=== PATIENT | female | born 1945 | race Caucasian/White ===

== ENCOUNTER 2018-01-06 10:01 | Emergency (ER) | payer OTHER, SELFPAY ==
[~2018-01-06] VITALS: Ht 165.1 cm; Wt 108.0 kg
[~2018-01-06 10:01] MED LIST: ACET325 PO; ASPI325 PO; ASPI81CH PO; ASPI81EC PO; ATEN25 PO; ATEN50; ATEN50 PO; ATOR80 PO; BENZ100A PO; BUME2 PO; CALCAVITD PO; CEPH500 PO; CHOL10002 PO; CIPR250 PO; CIPR500 PO; CLIN150 PO; CLOP75 PO; COENZYME Q10100 MG PO; CYAN100 PO; CYAN1000I IM; Calcium 600 W/1 EAC1 PO; DIPATR PO; DOCSEN PO; DOXY100 PO; ENAL20 PO; FISH1000 PO; FLUT.05NI; GLIP5 PO; GLYMET5; GLYMET5 PO; Humalog100 UNIT/1; INSDET100 SC; INSLI100I SC; INSULANPEN SC; LEVFLO500 PO; LIDO5TP TOP; LISI5 PO; LORA.5 PO; LOVA20 PO; LOVA40; LOVA40 PO; MECL25 PO; METF500 PO; METO10 PO; MOM PO; MULVITA PO; MULVITMIND PO; MULVITMINE PO; Nitrostat0.4 MG SL; OMEP20ER PO; ONDA4ODT MM; ONDA8 PO; OXYACE5T PO; OXYC5 PO; PIOG15 PO; POLY17UD PO; POTCHL10ER PO; PROC5 PO; PROM25 PO; Zofran Odt4 MG PO; Zofran4 MG PO; Zofran8 MG PO
[2018-01-06 10:50] LABS: BASOPHILS ABSOLUTE AUTO 0.03 K/mm3 (0.00-0.23); BASOPHILS PERCENT AUTO 0 % (0-2); EOSINOPHILS ABSOLUTE AUTO 0.03 K/mm3 (0.00-0.68); EOSINOPHILS PERCENT AUTO 0 % (0-6); Hematocrit 44.5 % (33.0-51.0); Hemoglobin 14.5 g/dL (11.5-16.0); IMMATURE GRAN ABSOLUTE AUTO 0.02 K/mm3 (0.00-0.10); IMMATURE GRAN PERCENT AUTO 0 % (0-1); LYMPHOCYTES ABSOLUTE AUTO 0.24 K/mm3 (0.84-5.20); LYMPHOCYTES PERCENT AUTO 4 % (21-46); MONOCYTES ABSOLUTE AUTO 0.34 K/mm3 (0.16-1.47); MONOCYTES PERCENT AUTO 5 % (4-13); Mean Corpuscular HGB 31.9 pg (26.0-34.0); Mean Corpuscular HGB Conc 32.6 g/dL (31.5-36.5); Mean Corpuscular Volume 98 fL (80-100); Mean Platelet Volume 11.6 fL (9.1-12.4); NEUTROPHILS ABSOLUTE AUTO 6.27 K/mm3 (1.96-9.15); NEUTROPHILS PERCENT AUTO 91 % (41-73); Platelet Count 148 K/mm3 (150-400); RDW Coefficient Variation 12.5 % (11.7-14.2); Red Blood Cell Count 4.55 M/mm3 (3.80-5.20); White Blood Cell Count 6.93 K/mm3 (4.00-11.30)
[2018-01-06 11:12] LABS: Alanine Aminotransfer (ALT/SGP 299 U/L (12-78); Albumin, Blood 3.1 g/dL (3.4-5.0); Albumin/Globulin Ratio 0.8 (0.8-1.8); Alk Phos 316 U/L (50-136); Anion Gap 9 mmol/L (6-16); Aspartate Aminotrans (AST/SGOT 503 U/L (12-37); Bilirubin, Total 1.1 mg/dL (0.1-1.0); Blood Urea Nitrogen 15 mg/dL (8-24); Bun/Creatinine Ratio 21.7 (12.0-20.0); CO2, Blood 24 mmol/L (21-32); Calcium, Blood 8.6 mg/dL (8.5-10.1); Chloride, Blood 108 mmol/L (98-108); Creatinine, Blood 0.69 mg/dL (0.40-1.00); Glomerular Filtration Rate >60 (60-); Glucose, Blood 211 mg/dL (70-99); Potassium, Blood 3.8 mmol/L (3.5-5.5); Sodium, Blood 141 mmol/L (136-145); Total Protein, Blood 7.1 g/dL (6.4-8.2)
[2018-01-06] MEDS ORDERED: Zofran Odt8 MG SL (12:25)
[2018-01-06] MEDS ORDERED: Ultram50 MG PO (12:25)
== END 2018-01-06 13:05 | disposition home or self-care (01) ==
LOC: ER 10:01
PROVIDERS: Emergency Medicine
DX: K52.9 Noninfective gastroenteritis and colitis, unspecified (principal); I48.91 Unspecified atrial fibrillation; I10 Essential (primary) hypertension; E78.00 Pure hypercholesterolemia, unspecified; E11.9 Type 2 diabetes mellitus without complications; I25.2 Old myocardial infarction; Z95.5 Presence of coronary angioplasty implant and graft; Z79.82 Long term (current) use of aspirin; Z79.4 Long term (current) use of insulin; Z79.899 Other long term (current) drug therapy
CPT/HCPCS: 36415; 80053; 83690; 85025; 93005; 93010; 96361; 96374; 96375; 99283; J0780; J2405; J3010; J7030

== ENCOUNTER 2018-05-24 16:18 | Emergency (ER) | payer OTHER ==
[~2018-05-24] VITALS: Ht 165.1 cm; Wt 98.9 kg
[~2018-05-24 16:18] MED LIST changes: +Ultram50 MG PO; +Zofran Odt8 MG SL
[2018-05-24 16:56] LABS: BASOPHILS ABSOLUTE AUTO 0.06 K/mm3 (0.00-0.23); BASOPHILS PERCENT AUTO 1 % (0-2); EOSINOPHILS ABSOLUTE AUTO 0.17 K/mm3 (0.00-0.68); EOSINOPHILS PERCENT AUTO 3 % (0-6); Hematocrit 41.6 % (33.0-51.0); Hemoglobin 13.8 g/dL (11.5-16.0); IMMATURE GRAN ABSOLUTE AUTO 0.01 K/mm3 (0.00-0.10); IMMATURE GRAN PERCENT AUTO 0 % (0-1); LYMPHOCYTES ABSOLUTE AUTO 1.37 K/mm3 (0.84-5.20); LYMPHOCYTES PERCENT AUTO 24 % (21-46); MONOCYTES ABSOLUTE AUTO 0.47 K/mm3 (0.16-1.47); MONOCYTES PERCENT AUTO 8 % (4-13); Mean Corpuscular HGB 32.4 pg (26.0-34.0); Mean Corpuscular HGB Conc 33.2 g/dL (31.5-36.5); Mean Corpuscular Volume 98 fL (80-100); Mean Platelet Volume 11.7 fL (9.1-12.4); NEUTROPHILS ABSOLUTE AUTO 3.74 K/mm3 (1.96-9.15); NEUTROPHILS PERCENT AUTO 64 % (41-73); Platelet Count 201 K/mm3 (150-400); RDW Coefficient Variation 12.4 % (11.7-14.2); RDW Standard Deviation 44.4 fL (35.1-46.3); Red Blood Cell Count 4.26 M/mm3 (3.80-5.20); White Blood Cell Count 5.82 K/mm3 (4.00-11.30)
[2018-05-24 17:05] LABS: Alanine Aminotransfer (ALT/SGP 50 U/L (12-78); Albumin/Globulin Ratio 0.7 (0.8-1.8); Alk Phos 324 U/L (50-136); Anion Gap 6 mmol/L (6-16); Aspartate Aminotrans (AST/SGOT 48 U/L (12-37); Bilirubin, Total 0.5 mg/dL (0.1-1.0); Blood Urea Nitrogen 20 mg/dL (8-24); Bun/Creatinine Ratio 25.5 (12.0-20.0); CO2, Blood 28 mmol/L (21-32); Calcium, Blood 8.9 mg/dL (8.5-10.1); Chloride, Blood 107 mmol/L (98-108); Creatinine, Blood 0.79 mg/dL (0.40-1.00); Globulin, Blood 4.2 g/dL (2.2-4.0); Glomerular Filtration Rate >60 (60-); Glucose, Blood 229 mg/dL (70-99); Potassium, Blood 4.2 mmol/L (3.5-5.5); Sodium, Blood 141 mmol/L (136-145); Total Protein, Blood 7.2 g/dL (6.4-8.2)
== END 2018-05-24 21:08 | disposition home or self-care (01) ==
LOC: ER 16:18
PROVIDERS: Emergency Medicine
DX: R07.89 Other chest pain (principal); I48.91 Unspecified atrial fibrillation; I10 Essential (primary) hypertension; E11.9 Type 2 diabetes mellitus without complications; E78.00 Pure hypercholesterolemia, unspecified; Z88.5 Allergy status to narcotic agent; Z88.0 Allergy status to penicillin; Z88.2 Allergy status to sulfonamides; Z88.1 Allergy status to other antibiotic agents; Z79.4 Long term (current) use of insulin; Z79.899 Other long term (current) drug therapy; Z79.82 Long term (current) use of aspirin
CPT/HCPCS: 36415; 71046; 80053; 83880; 84484; 85025; 93005; 93010; 99285-25

== ENCOUNTER 2018-11-26 09:12 | Day surgery (SDC) | payer OTHER, SELFPAY ==
--- NOTE | 2018-11-26 12:22 | NUR ---
Discharge instructions reviewed with patient. Patient verbalizes understanding. Copy given to patient to take home. Discharged via wheelchair to private car for ride home. BANDAIDE C/D/I
== END 2018-11-26 12:20 | disposition home or self-care (01) ==
LOC: US 09:12 → ORD 09:12
DX: R94.5 Abnormal results of liver function studies (principal)
CPT/HCPCS: 47000; 76942; 88307; 88313

== ENCOUNTER 2019-03-15 15:41 | Inpatient (IN) | payer OTHER ==
[~2019-03-15] VITALS: Ht 165.1 cm; Wt 103.4 kg
[2019-03-15 16:08] LABS: BASOPHILS ABSOLUTE AUTO 0.07 K/mm3 (0.00-0.23); BASOPHILS PERCENT AUTO 1 % (0-2); EOSINOPHILS ABSOLUTE AUTO 0.15 K/mm3 (0.00-0.68); EOSINOPHILS PERCENT AUTO 2 % (0-6); Hematocrit 43.8 % (33.0-51.0); Hemoglobin 14.2 g/dL (11.5-16.0); IMMATURE GRAN ABSOLUTE AUTO 0.03 K/mm3 (0.00-0.10); IMMATURE GRAN PERCENT AUTO 0 % (0-1); LYMPHOCYTES ABSOLUTE AUTO 1.42 K/mm3 (0.84-5.20); LYMPHOCYTES PERCENT AUTO 17 % (21-46); MONOCYTES PERCENT AUTO 10 % (4-13); Mean Corpuscular HGB 32.4 pg (26.0-34.0); Mean Corpuscular HGB Conc 32.4 g/dL (31.5-36.5); Mean Corpuscular Volume 100 fL (80-100); Mean Platelet Volume 12.4 fL (9.1-12.4); NEUTROPHILS ABSOLUTE AUTO 5.89 K/mm3 (1.96-9.15); NEUTROPHILS PERCENT AUTO 70 % (41-73); Platelet Count 204 K/mm3 (150-400); RDW Coefficient Variation 13.2 % (11.7-14.2); RDW Standard Deviation 49.4 fL (35.1-46.3); Red Blood Cell Count 4.38 M/mm3 (3.80-5.20); White Blood Cell Count 8.36 K/mm3 (4.00-11.30)
[2019-03-15 16:34] LABS: Alanine Aminotransfer (ALT/SGP 46 U/L (12-78); Albumin, Blood 2.8 g/dL (3.4-5.0); Albumin/Globulin Ratio 0.6 (0.8-1.8); Alk Phos 292 U/L (50-136); Anion Gap 7 mmol/L (6-16); Aspartate Aminotrans (AST/SGOT 133 U/L (12-37); Bilirubin, Total 0.8 mg/dL (0.1-1.0); Blood Urea Nitrogen 20 mg/dL (8-24); Bun/Creatinine Ratio 27.2 (12.0-20.0); CO2, Blood 26 mmol/L (21-32); Calcium, Blood 8.6 mg/dL (8.5-10.1); Chloride, Blood 108 mmol/L (98-108); Creatinine, Blood 0.74 mg/dL (0.40-1.00); Globulin, Blood 4.4 g/dL (2.2-4.0); Glomerular Filtration Rate >60 (60-); Glucose, Blood 226 mg/dL (70-99); Potassium, Blood 4.2 mmol/L (3.5-5.5); Sodium, Blood 141 mmol/L (136-145); Total Protein, Blood 7.2 g/dL (6.4-8.2)
[2019-03-15] MEDS ORDERED: ALBU90OI61 INH (16:39)
--- NOTE | 2019-03-15 19:05 | NUR ---
ASSUMED CARE: PT ARIVED TO ICU 15 AT 1820, C/O NAUSEA AND VOMITING UPON ENTERING THE UNIT. GAVE ONE TIME DOSE OF ZOFRAN 4MG. APPEARS TO HAVE HELPED, PT DENIES NAUSEA AT THIS TIME. HR IS NOTED TO BE IN THE 50'S UPON ARIVAL. BP WAS 109/54 UPON ARIVAL AND BEGAN DECREASING. TALKED TO DR CHECO GEORGE ABOUT DECREASING BP AND VERBAL RECEIVED ORDERS. TR BAND IN PLACE WITH NO S/S OF BLEEDING NOTED, NO TENDERNESS, SWELLING, REDNESS OR BLEEDING. NO ACUTE DISTRESS NOTED AT THIS TIME. REPORT GIVEN TO LYNDA VERDUZCO.
--- NOTE | 2019-03-15 19:43 | NUR ---
PATIENT TRANSFER TO [facility] VIA REACH REPORT CALLED TO ALICIA VERDUZCO AT [facility] 12K PATIENT PLAN TO GO TO ROOM 18. PATIENT A&O X3 PATIENT FAMILY AWARE OF ROOM SHE IS GOING TO AND HAS LEFT TO MEET HER UP IN [place]. PATIENT WAS HYPOTENSIVE WITH SBP 80'S RESPONDING WELL TO NS BOLUS WITH FINAL BP 113/66. PATIENT MEDICATED WITH ZOFRAN BY DAY SHIFT FOR NAUSEA NO FARTHER NAUSEA AT THIS TIME. PATIENT HAS NO C/O PAIN OR NAUSEA WHEN LEAVING. TR BAND IN PLACE RIGHT WRIST, LEAVING WITH TR BAND INFLATED TO 10 CC OF AIR AND ARM BOARD IN PLACE. RIGHT WRIST SITE NO OOZING, SWELLING, OR BRUISING SEEN. TR BAND SYRINGE SENT WITH TRANSPORT.
== END 2019-03-15 19:45 | disposition short-term general hospital (02) | DRG 282 ==
LOC: ER 15:41 → ICUW 17:30
PROVIDERS: Physician Assistant; ADMIT Internal Medicine Interventional Cardiology
PROC: 4A023N7 Measurement of Cardiac Sampling and Pressure, Left Heart, Percutaneous Approach (ICD-10-PCS; principal; 2019-03-15)
PROC: B2111ZZ Fluoroscopy of Multiple Coronary Arteries using Low Osmolar Contrast (ICD-10-PCS; 2019-03-15)
DX: I21.4 Non-ST elevation (NSTEMI) myocardial infarction (principal); I25.10 Atherosclerotic heart disease of native coronary artery without angina pectoris; I10 Essential (primary) hypertension; E11.9 Type 2 diabetes mellitus without complications; K21.9 Gastro-esophageal reflux disease without esophagitis; Z95.5 Presence of coronary angioplasty implant and graft
CPT/HCPCS: 36415; 71046; 80053; 84484; 85025; 93005; 93010; 93458; 96374; 99152; 99153; 99285-25; C1769; C1887; C1894; J1644; J2250; J2405; J3010; J7030; Q9967

== ENCOUNTER 2019-04-17 00:22 | Inpatient (IN) | payer OTHER ==
[~2019-04-17] VITALS: Ht 165.1 cm; Wt 112.8 kg
[~2019-04-17 00:22] MED LIST changes: +ALBU90OI61 INH
[2019-04-17 01:18] LABS: BASOPHILS ABSOLUTE AUTO 0.03 K/mm3 (0.00-0.23); BASOPHILS PERCENT AUTO 1 % (0-2); EOSINOPHILS ABSOLUTE AUTO 0.44 K/mm3 (0.00-0.68); EOSINOPHILS PERCENT AUTO 8 % (0-6); Hematocrit 33.5 % (33.0-51.0); Hemoglobin 10.2 g/dL (11.5-16.0); IMMATURE GRAN ABSOLUTE AUTO 0.01 K/mm3 (0.00-0.10); IMMATURE GRAN PERCENT AUTO 0 % (0-1); LYMPHOCYTES ABSOLUTE AUTO 0.88 K/mm3 (0.84-5.20); LYMPHOCYTES PERCENT AUTO 16 % (21-46); MONOCYTES ABSOLUTE AUTO 0.56 K/mm3 (0.16-1.47); MONOCYTES PERCENT AUTO 10 % (4-13); Mean Corpuscular HGB 30.3 pg (26.0-34.0); Mean Corpuscular HGB Conc 30.4 g/dL (31.5-36.5); Mean Corpuscular Volume 99 fL (80-100); Mean Platelet Volume 9.9 fL (9.1-12.4); NEUTROPHILS ABSOLUTE AUTO 3.63 K/mm3 (1.96-9.15); NEUTROPHILS PERCENT AUTO 65 % (41-73); Platelet Count 243 K/mm3 (150-400); RDW Standard Deviation 54.6 fL (35.1-46.3); Red Blood Cell Count 3.37 M/mm3 (3.80-5.20); White Blood Cell Count 5.55 K/mm3 (4.00-11.30)
[2019-04-17 01:38] LABS: International Normalized Ratio 1.06; Prothrombin Time Results 11.2 Sec (9.7-11.5)
[2019-04-17 01:40] LABS: Alanine Aminotransfer (ALT/SGP 28 U/L (12-78); Albumin, Blood 2.2 g/dL (3.4-5.0); Albumin/Globulin Ratio 0.5 (0.8-1.8); Alk Phos 301 U/L (50-136); Anion Gap 6 mmol/L (6-16); Aspartate Aminotrans (AST/SGOT 41 U/L (12-37); Bilirubin, Total 0.4 mg/dL (0.1-1.0); Blood Urea Nitrogen 28 mg/dL (8-24); Bun/Creatinine Ratio 32.7 (12.0-20.0); CO2, Blood 35 mmol/L (21-32); Chloride, Blood 99 mmol/L (98-108); Creatinine, Blood 0.86 mg/dL (0.40-1.00); Globulin, Blood 4.3 g/dL (2.2-4.0); Glomerular Filtration Rate >60 (60-); Glucose, Blood 150 mg/dL (70-99); Sodium, Blood 140 mmol/L (136-145); Total Protein, Blood 6.5 g/dL (6.4-8.2); Troponin I 0.019 ng/mL (0.000-0.040)
[2019-04-17] MEDS ORDERED: ASPI325 PO (01:40)
[2019-04-17] MEDS ORDERED: Pacerone100 MG PO (01:40)
[2019-04-17] MEDS ORDERED: CLOP75 PO (01:40)
[2019-04-17] MEDS ORDERED: CYAN500 PO (01:46)
[2019-04-17] MEDS ORDERED: PANT40 PO (01:47)
[2019-04-17] MEDS ORDERED: LIDO700A20 TOP (01:47)
[2019-04-17] MEDS ORDERED: SERT50 PO (01:48)
[2019-04-17] MEDS ORDERED: FURO80 PO (01:49)
[2019-04-17] MEDS ORDERED: Metformin HCl500 MG PO (01:50)
[2019-04-17] MEDS ORDERED: POTCHL20ER PO (02:31)
[2019-04-17] MEDS ORDERED: ACET325 PO (02:32)
[2019-04-17] MEDS ORDERED: SENN187 PO (02:33)
[2019-04-17] MEDS ORDERED: GAVILAX17 GM PO (02:33)
[2019-04-17] MEDS ORDERED: TRAM50 PO (02:39)
[2019-04-17] MEDS ORDERED: ONDA4 PO (02:43)
--- NOTE | 2019-04-17 06:22 | NUR ---
0550 73 Y/O FEMALE ADMITTED TO ROOM 312 PER STRETCHER FROM ER. PT SIGN CONSENTS TO PHOTO WOUNDS TO CHEST AND RIGHT ANTERIOR UPPER CALF WOUNDS. PT IS ALERT AND ORIENTED X3.
--- NOTE | 2019-04-17 07:34 | NUR ---
0610 PTS MID STERNAL INCISION MEASURES 19CM; DISTAL ASPECT STERNAL INCISION HAS OPEN WOUND THAT MEASURES 3.5 X 1.5 0.5 CM WITH GREEN/YELLOW WOUND BED NOTED. PTS RIGHT KNEE INCISION MEASURES 6 X 6 CM IN DIAMETER (REDDENED). PTS STERNAL WOUND HAS OLD DRESSING TO STERNAL WOUND.
--- NOTE | 2019-04-17 10:19 | NUR ---
Echocardiogram completed.
--- NOTE | 2019-04-17 19:36 | NUR ---
SHIFT SUMAMRY: NO ACUTE CHANGES TO REPORT THSI SHIFT. PT A&O; CALM AND COOPERATIVE WITH CARE. PT SLEEPING T/O SHIFT. MEDICATED FOR PAIN PER EMAR. TELE IN PLACE; A-FIB @ 118 PER ENGLISH PROFESSOR DURING MORNING ASSESSMENT. IV ABX CONTINUING. REPROT GIVEN TO ONCOMING RN.
--- NOTE | 2019-04-17 21:51 | NUR ---
THIS NURSE CONTACTED [facility] AND REQUESTED CURRENT MEDICATION LIST WITH FACILITY TO FAX COPY TONIGHT. THIS NURSE PROVIDED FAX TO HOSPITAL ([phone]).
--- NOTE | 2019-04-18 04:19 | NUR ---
SHIFT SUMMARY: 73 Y/O OBESE FEMALE RESTED COMFORTABLY ALL SHIFT WITH OCCASIONAL C/O INCISIONAL CHEST DISCOMFORT RATED 5/10 WITH TYLENOL 500MG X 2 GIVEN AND TRAMADOL 50MG PO GIVEN WITH FAIR RELIEF. PTS MID STERNAL CHEST STILL HAS SAME OLD DRESSING INTACT SINCE ADMISSION WITH NOTE LEFT FOR CHARGE NURSE AND MD TO ADDRESS. PT INCONTINENT URINE AND REQUIRED ASSISTANCE WITH ATTENDS DIAPERS VIA STAFF. PT DENIES NAUSEA. PTS BED ALARM APPLIED, BED LOW POSITION, CALL LIGHT AT SIDE.
[2019-04-18 05:38] LABS: BASOPHILS ABSOLUTE AUTO 0.07 K/mm3 (0.00-0.23); BASOPHILS PERCENT AUTO 2 % (0-2); EOSINOPHILS ABSOLUTE AUTO 0.46 K/mm3 (0.00-0.68); EOSINOPHILS PERCENT AUTO 10 % (0-6); Hematocrit 31.5 % (33.0-51.0); Hemoglobin 9.6 g/dL (11.5-16.0); IMMATURE GRAN ABSOLUTE AUTO 0.01 K/mm3 (0.00-0.10); IMMATURE GRAN PERCENT AUTO 0 % (0-1); LYMPHOCYTES ABSOLUTE AUTO 0.98 K/mm3 (0.84-5.20); LYMPHOCYTES PERCENT AUTO 21 % (21-46); MONOCYTES ABSOLUTE AUTO 0.45 K/mm3 (0.16-1.47); MONOCYTES PERCENT AUTO 10 % (4-13); Mean Corpuscular HGB 29.9 pg (26.0-34.0); Mean Corpuscular HGB Conc 30.5 g/dL (31.5-36.5); Mean Corpuscular Volume 98 fL (80-100); NEUTROPHILS ABSOLUTE AUTO 2.77 K/mm3 (1.96-9.15); NEUTROPHILS PERCENT AUTO 58 % (41-73); Platelet Count 243 K/mm3 (150-400); Red Blood Cell Count 3.21 M/mm3 (3.80-5.20); White Blood Cell Count 4.74 K/mm3 (4.00-11.30)
[2019-04-18 05:58] LABS: Anion Gap 4 mmol/L (6-16); Blood Urea Nitrogen 26 mg/dL (8-24); Bun/Creatinine Ratio 30.6 (12.0-20.0); CO2, Blood 34 mmol/L (21-32); Chloride, Blood 98 mmol/L (98-108); Creatinine, Blood 0.85 mg/dL (0.40-1.00); Glomerular Filtration Rate >60 (60-); Glucose, Blood 147 mg/dL (70-99); Potassium, Blood 3.7 mmol/L (3.5-5.5); Sodium, Blood 136 mmol/L (136-145)
--- NOTE | 2019-04-18 13:23 | NUR ---
SHE HAS BEEN NAPPING AFTER LUNCH. SHE SAYS THAT'S WHAT SHE NEEDS.
--- NOTE | 2019-04-18 18:40 | NUR ---
BACK TO BED AFTER DINNER. SHE ENDED UP EATING WELL TODAY. SHE C/O STERNAL INCISION PAIN. TYLENOL JUST GIVEN. STERNAL INCISION UNCGHNGED. NO DRAINAGE. MD EVALUATED IT TODAY.
[2019-04-19 06:03] LABS: Vancomycin, Trough 13.1 ug/mL (5.0-10.0)
[2019-04-19 07:21] LABS: Calcium, Blood 8.2 mg/dL (8.5-10.1); Creatinine, Blood 1.04 mg/dL (0.40-1.00); Potassium, Blood 3.9 mmol/L (3.5-5.5)
--- NOTE | 2019-04-19 07:36 | NUR ---
SHIFT SUMMARY: 73 Y/O OBESE FEMALE RESTED COMFORTABLY ALL SHIFT. PT MEDICATED WITH TYLENOL 1000MG, PO TWICE WITH RELIEF FOR STERNAL DISCOMFORT. PTS ALERT AND ORIENTED, CHEERFUL AND COOPERATIVE WITH STAFF. PTS STERNAL WOUND DRESSING INTACT, BILATERAL LOWER LEG WOUNDS STILL SLIGHTLY REDDENED SURROUNDING INCISION. PT HAS BILATERAL LOWER EXTREMITY +3 PITTING EDEMA. PTS BED ALARM APPLIED FOR SAFETY, BED LOW POSITION, CALL LIGHT AT SIDE.
--- NOTE | 2019-04-19 17:12 | NUR ---
SHE HAS HAD A FAIR DAY. SHE C/O HAVING TO USE HER ARMS TOO MUCH TO GET TO A STANDING POSITION, MAKING HER CHEST HURT MORE. SHE ALSO HAD AN EMESIS THIS MORNING BETWEEN BREAKFAST AND LUNCH. ZOFRAN AND TYLENOL GIVEN WHEN ALLOWED AROUND 1 O'CLOCK. SHE HAS BEEN NAPPIN OR RESTING SINCE. WILL ENCOURAGE HER TO GET UP AGAIN FOR DINNER. LASIX LOWERED TODAY. LEGS LESS SWOLLEN THAN YESTERDAY. KNEE TEDS ON. CBG'S STABLE. MIDLINE INCISIONAL STERI STRIP STILL IN PLACE. NO DRAINAGE.
[2019-04-20 05:35] LABS: BASOPHILS ABSOLUTE AUTO 0.07 K/mm3 (0.00-0.23); BASOPHILS PERCENT AUTO 1 % (0-2); EOSINOPHILS ABSOLUTE AUTO 0.44 K/mm3 (0.00-0.68); EOSINOPHILS PERCENT AUTO 9 % (0-6); Hematocrit 32.2 % (33.0-51.0); Hemoglobin 9.9 g/dL (11.5-16.0); IMMATURE GRAN ABSOLUTE AUTO 0.02 K/mm3 (0.00-0.10); IMMATURE GRAN PERCENT AUTO 0 % (0-1); LYMPHOCYTES ABSOLUTE AUTO 1.13 K/mm3 (0.84-5.20); LYMPHOCYTES PERCENT AUTO 23 % (21-46); MONOCYTES ABSOLUTE AUTO 0.52 K/mm3 (0.16-1.47); MONOCYTES PERCENT AUTO 11 % (4-13); Mean Corpuscular HGB 29.9 pg (26.0-34.0); Mean Corpuscular HGB Conc 30.7 g/dL (31.5-36.5); Mean Corpuscular Volume 97 fL (80-100); NEUTROPHILS ABSOLUTE AUTO 2.69 K/mm3 (1.96-9.15); NEUTROPHILS PERCENT AUTO 55 % (41-73); Platelet Count 246 K/mm3 (150-400); RDW Coefficient Variation 14.8 % (11.7-14.2); RDW Standard Deviation 52.3 fL (35.1-46.3); Red Blood Cell Count 3.31 M/mm3 (3.80-5.20); White Blood Cell Count 4.87 K/mm3 (4.00-11.30)
--- NOTE | 2019-04-20 05:39 | NUR ---
SHIFT SUMMARY: 73 Y/O OBESE FEMALE RESTED COMFORTABLY IN BED. PT VOIDED URINE VIA BEDPAN ALL SHIFT (NO INCONTINENCE). PT C/O CHEST DISCOMFORT WITH TYLENOL 100MG GIVEN WTIH RELIEF FELT. PT DENIES NAUSEA. PTS CHEST WOUND STILL HAS OLD DRIED SUTURE TAPE IN PLACE WITH OPENING AT DISTAL ASPECT. PT TOLERATING ANTIBIOTICS ORDERED TO DATE. PT ALERT AND ORIENTED X 4, COOPERATIVE WITH STAFF. PTS BED ALARM APPLIED, BED LOW POSITION, CALL LIGHT AT SIDE.
[2019-04-20 05:56] LABS: Bun/Creatinine Ratio 24.8 (12.0-20.0); Calcium, Blood 8.1 mg/dL (8.5-10.1); Creatinine, Blood 1.05 mg/dL (0.40-1.00); Potassium, Blood 4.1 mmol/L (3.5-5.5)
--- NOTE | 2019-04-20 08:24 | NUR ---
PATIENT HEART RATE WENT TO 140'S AFIB AND WAS VOMITING AT THE TIME. ON BEDPAN AND 120-130 AFIB. WCTM
[2019-04-20] MEDS ORDERED: CEFU500T30 PO (10:55)
[2019-04-20] MEDS ORDERED: TRAM50 PO (10:58)
[2019-04-20] MEDS ORDERED: CELE200 PO (10:58)
--- NOTE | 2019-04-20 11:30 | NUR ---
Spiritual care visit conducted. Patient is sitting on a chair and alert. Patient openly shares about her family unit complications, her spiritual journey and her current medical condition. I conducted a life review, explored patient belief system, reinforced helpful attitudes and preacticces, provided emotional support and provided prayer. Patient responded well and showed signs of restored thor.
--- NOTE | 2019-04-20 16:41 | NUR ---
REPORT TO MARGARITA AT [facility]. ANSWER ALL QUESTIONS. ASSISTED TO W/C THEN TO [facility] FOR TRANSPORT.
== END 2019-04-20 16:41 | DRG 871 ==
LOC: ER 00:22 → MEDS 00:23 → ER 05:43 → MEDS 05:43 → ENPENDDIS 04-20 10:51 → MEDS 04-20 16:41
PROVIDERS: Emergency Medicine; Hospitalist; ADMIT Internal Medicine
DX: A41.9 Sepsis, unspecified organism (principal); J18.9 Pneumonia, unspecified organism; R65.20 Severe sepsis without septic shock; E83.42 Hypomagnesemia; E11.9 Type 2 diabetes mellitus without complications; I10 Essential (primary) hypertension; I25.10 Atherosclerotic heart disease of native coronary artery without angina pectoris; I48.2 Chronic atrial fibrillation; K59.00 Constipation, unspecified; Z95.1 Presence of aortocoronary bypass graft; Z95.5 Presence of coronary angioplasty implant and graft; K21.9 Gastro-esophageal reflux disease without esophagitis; E78.5 Hyperlipidemia, unspecified
CPT/HCPCS: 36415; 71046; 80048; 80053; 80202; 82947; 83036; 83605; 83735; 83880; 84145; 84484; 85025; 85610; 87040; 93005; 93010; 93306; 96361; 96365; 96367; 96375; 96376; 97110; 97116; 97162; 97530; 99285-25; G0378; J0692; J1650; J1940; J2270; J3370; J3475; J7030; J7050

== ENCOUNTER 2019-04-28 17:51 | Inpatient (IN) | payer OTHER ==
[~2019-04-28] VITALS: Ht 165.1 cm; Wt 118.2 kg
[~2019-04-28 17:51] MED LIST changes: +CEFU500T30 PO; +CELE200 PO; +CYAN500 PO; +FURO80 PO; +GAVILAX17 GM PO; +LIDO700A20 TOP; +Metformin HCl500 MG PO; +ONDA4 PO; +PANT40 PO; +POTCHL20ER PO; +Pacerone100 MG PO; +SENN187 PO; +SERT50 PO; +TRAM50 PO
[2019-04-28] MEDS ORDERED: LIDOCAINE1 EACH TOP (18:25)
[2019-04-28] MEDS ORDERED: Milk Of Ma400 MG/5 M PO (18:25)
[2019-04-28] MEDS ORDERED: CVS DISPOSABLE399 ML PR (18:27)
[2019-04-28] MEDS ORDERED: Adult Glycerin1 EACH PR (18:28)
[2019-04-28 18:47] LABS: BASOPHILS ABSOLUTE AUTO 0.05 K/mm3 (0.00-0.23); BASOPHILS PERCENT AUTO 1 % (0-2); EOSINOPHILS ABSOLUTE AUTO 0.36 K/mm3 (0.00-0.68); EOSINOPHILS PERCENT AUTO 7 % (0-6); Hematocrit 33.9 % (33.0-51.0); IMMATURE GRAN ABSOLUTE AUTO 0.01 K/mm3 (0.00-0.10); IMMATURE GRAN PERCENT AUTO 0 % (0-1); LYMPHOCYTES ABSOLUTE AUTO 0.88 K/mm3 (0.84-5.20); LYMPHOCYTES PERCENT AUTO 16 % (21-46); MONOCYTES ABSOLUTE AUTO 0.57 K/mm3 (0.16-1.47); MONOCYTES PERCENT AUTO 11 % (4-13); Mean Corpuscular HGB 28.4 pg (26.0-34.0); Mean Corpuscular HGB Conc 29.5 g/dL (31.5-36.5); Mean Corpuscular Volume 96 fL (80-100); Mean Platelet Volume 10.4 fL (9.1-12.4); NEUTROPHILS ABSOLUTE AUTO 3.58 K/mm3 (1.96-9.15); NEUTROPHILS PERCENT AUTO 66 % (41-73); Platelet Count 197 K/mm3 (150-400); RDW Coefficient Variation 15.4 % (11.7-14.2); RDW Standard Deviation 54.9 fL (35.1-46.3); Red Blood Cell Count 3.52 M/mm3 (3.80-5.20); White Blood Cell Count 5.45 K/mm3 (4.00-11.30)
[2019-04-28 19:14] LABS: Albumin, Blood 2.5 g/dL (3.4-5.0); Albumin/Globulin Ratio 0.6 (0.8-1.8); Bilirubin, Total 0.3 mg/dL (0.1-1.0); Bun/Creatinine Ratio 22.7 (12.0-20.0); Calcium, Blood 8.4 mg/dL (8.5-10.1); Creatinine, Blood 1.32 mg/dL (0.40-1.00); Potassium, Blood 4.9 mmol/L (3.5-5.5); Total Protein, Blood 6.5 g/dL (6.4-8.2)
[2019-04-29 05:34] LABS: BASOPHILS ABSOLUTE AUTO 0.06 K/mm3 (0.00-0.23); BASOPHILS PERCENT AUTO 1 % (0-2); EOSINOPHILS ABSOLUTE AUTO 0.33 K/mm3 (0.00-0.68); EOSINOPHILS PERCENT AUTO 7 % (0-6); Hematocrit 32.7 % (33.0-51.0); Hemoglobin 9.7 g/dL (11.5-16.0); IMMATURE GRAN ABSOLUTE AUTO 0.01 K/mm3 (0.00-0.10); IMMATURE GRAN PERCENT AUTO 0 % (0-1); LYMPHOCYTES ABSOLUTE AUTO 1.03 K/mm3 (0.84-5.20); LYMPHOCYTES PERCENT AUTO 21 % (21-46); MONOCYTES ABSOLUTE AUTO 0.49 K/mm3 (0.16-1.47); MONOCYTES PERCENT AUTO 10 % (4-13); Mean Corpuscular HGB 28.3 pg (26.0-34.0); Mean Corpuscular HGB Conc 29.7 g/dL (31.5-36.5); Mean Corpuscular Volume 95 fL (80-100); Mean Platelet Volume 10.4 fL (9.1-12.4); NEUTROPHILS PERCENT AUTO 62 % (41-73); Platelet Count 183 K/mm3 (150-400); RDW Coefficient Variation 15.6 % (11.7-14.2); RDW Standard Deviation 54.1 fL (35.1-46.3); Red Blood Cell Count 3.43 M/mm3 (3.80-5.20); White Blood Cell Count 5.02 K/mm3 (4.00-11.30)
[2019-04-29 05:56] LABS: Bun/Creatinine Ratio 23.9 (12.0-20.0); Creatinine, Blood 1.17 mg/dL (0.40-1.00); Potassium, Blood 4.3 mmol/L (3.5-5.5)
--- NOTE | 2019-04-29 06:50 | NUR ---
a+o, saline locked, room air, audible wheeze but diminished ls, call light in reach able to make needs known, resting comfortably denied pain, family in to visit, will continue to monitor and treat until provide bsr to day shift.
--- NOTE | 2019-04-29 11:29 | NUR ---
Patient is sitting up in bed and alert. Because therapeutic alliance is established from a prior hospital visit patient openly shares about her discouragement and that she is concerned that she will ever be well again. We talk about the cause of these feelings. Patient tells me that it seems like there is just medical issue after medical issue and that she is longing to have some energy and strength again. Our conversation then revolves around sources of hope and inspiration. I explore her thor system, provide inspirational Bible verses, pastoral pet counselor and prayer. Patient responds well and shows signs of increased hope. Patient voiced her appreciation for the visit.
[2019-04-29 11:43] LABS: Source, Urine Catheter
[2019-04-29 11:52] LABS: Bilirubin, Urine Neg (Neg); Blood, Urine Neg (Neg); Glucose Qualitative, Urine Neg (Neg); Ketones, Urine Neg (Neg); Leukocyte Esterase, Urine 3+ (Neg); Nitrite, Urine Neg (Neg); Protein, Urine 1+ (Neg); Specific Gravity, Urine 1.015 (1.003-1.022); Urobilinogen, Urine NORM (Normal)
[2019-04-29 13:12] LABS: Appearance, Urine Hazy (Clear); Color, Urine Yellow (P-Yellow)
[2019-04-29 13:14] LABS: Bacteria Mod /hpf; Other Crystals Many /hpf; Squamous Epithelial Cells Few /hpf (Few)
--- NOTE | 2019-04-29 16:50 | NUR ---
SHIFT SUMMARY PT UP TO [facility] WITH ASSIST FROM 2 STAFF. PT TOLERATED WELL. PT DRESSING CHANGED & CLEANED OVER CHEST THIS SHIFT. PT GIVEN TOPICAL LIDOCAINE TO ASSIST WITH LOCALIZED INCISION PAIN. LIDOCAINE APPLIED AROUND INCISION, NOT DIRECTLY ON IT. NO OTHER CHANGES IN ASSESSMENT AT THIS TIME. VSS. WILL CONTINUE TO MONITOR UNTIL TURNOVER IS COMPLETE.
[2019-04-30 05:31] LABS: BASOPHILS ABSOLUTE AUTO 0.07 K/mm3 (0.00-0.23); BASOPHILS PERCENT AUTO 2 % (0-2); EOSINOPHILS ABSOLUTE AUTO 0.39 K/mm3 (0.00-0.68); EOSINOPHILS PERCENT AUTO 9 % (0-6); Hematocrit 32.9 % (33.0-51.0); Hemoglobin 9.8 g/dL (11.5-16.0); IMMATURE GRAN ABSOLUTE AUTO 0.02 K/mm3 (0.00-0.10); IMMATURE GRAN PERCENT AUTO 0 % (0-1); LYMPHOCYTES ABSOLUTE AUTO 0.98 K/mm3 (0.84-5.20); LYMPHOCYTES PERCENT AUTO 21 % (21-46); MONOCYTES ABSOLUTE AUTO 0.52 K/mm3 (0.16-1.47); MONOCYTES PERCENT AUTO 11 % (4-13); Mean Corpuscular HGB Conc 29.8 g/dL (31.5-36.5); Mean Corpuscular Volume 94 fL (80-100); Mean Platelet Volume 10.6 fL (9.1-12.4); NEUTROPHILS ABSOLUTE AUTO 2.61 K/mm3 (1.96-9.15); NEUTROPHILS PERCENT AUTO 57 % (41-73); Platelet Count 188 K/mm3 (150-400); RDW Coefficient Variation 15.7 % (11.7-14.2); RDW Standard Deviation 53.7 fL (35.1-46.3); White Blood Cell Count 4.59 K/mm3 (4.00-11.30)
[2019-04-30 05:54] LABS: Albumin, Blood 2.2 g/dL (3.4-5.0); Anion Gap 4 mmol/L (6-16); Blood Urea Nitrogen 28 mg/dL (8-24); Bun/Creatinine Ratio 24.8 (12.0-20.0); CO2, Blood 32 mmol/L (21-32); Calcium, Blood 8.3 mg/dL (8.5-10.1); Chloride, Blood 102 mmol/L (98-108); Creatinine, Blood 1.13 mg/dL (0.40-1.00); Glomerular Filtration Rate 50 (60-); Glucose, Blood 157 mg/dL (70-99); Phosphorus, Blood 3.2 mg/dL (2.5-4.9); Potassium, Blood 4.2 mmol/L (3.5-5.5); Sodium, Blood 138 mmol/L (136-145)
--- NOTE | 2019-04-30 06:08 | NUR ---
SHIFT SUMMARY: 76 Y/O OBESE FEMALE RESTED COMFORTABLY ALL SHIFT. PTS STERNAL DISAL WOUND COVERED WITH 4X4 WITH WOUND BED HAVING YELLOW SLOUGH WITH EDGES REDDENED. PT STILL HAS OLD DRESSING IN PLACE FROM PREVIOUS ADMISSION NOTED. PT ALERT AND ORIENTED X3 AND ABLE TO TRANSFER X 2 ASSIST ONTO BEDSIDE COMMODE. PT C/O GENERALIZED CHEST PAIN AND TOOK TYLENOL 650MG PO WITH RELIEF FELT. PT DENIES NAUSE. PT HAS SURGICAL CONSULT PENDING TODAY. PTS BED ALARM APPLIED, BED LOW POSITION, CALL LIGHT AT SIDE.
--- NOTE | 2019-04-30 11:09 | NUR ---
DR. MALDONADO CALLED DR. MALDONADO CALLED & INFORMED THIS RN THAT HE BELIEVES THAT THE PT NEEDS TO RETURN TO [facility] & HAVE THE SURGEON ASSESS & TREAT THE PT WOUND. DR. CHAMBERS CALLED & INFORMED OF THIS INFO. DR. CHAMBERS SAID SHE WILL TAKE CARE OF IT.
--- NOTE | 2019-04-30 15:27 | NUR ---
L INNER THIGH REDNESS THIS RN NOTICED THE L INNER THIGH IS SWOLLEN, RED, & FEVERISH. THIS RN DID NOT NOTICE THIS THIS AM OR YEATURDAY. DR. CHAMBERS NOTIFIED OF FINDINGS. WILL CONTINUE TO MONITOR.
[2019-04-30 15:45] LABS: Vancomycin, Trough 14.2 ug/mL (5.0-10.0)
--- NOTE | 2019-04-30 17:14 | NUR ---
SHIFT SUMMARY DR. CHAMBERS SHOWN PT WOUND & REDNESS ON PT L INNER THIGH. NO OTHER CHANGES AT THIS TIME. VSS. PT RESTING IN BED. 2P ASSIST TRANSFER. WILL CONTINUE TO MONITOR UNTIL TURNOVER IS COMPLETE. LIDOCAINE JELLY FOR CHEST PAIN.
--- NOTE | 2019-05-01 04:45 | NUR ---
SHIFT SUMMARY: 73 Y/O OBESE FEMALE RESTED COMFORTABLY ALL SHIFT. PT NPO AFTER MIDNIGHT FOR PENDING SURGICAL PROCEDURE SOMETIME TODAY (NO SET TIME YET, DAUGHTER IS AWARE OF PROCEDURE AFTER THIS NURSE CALLED HER AT HOME LAST NIGHT). PTS LEFT ANTERIOR UPPER THIGH IS RED AND WARM TO TOUCH. PTS STERNAL WOUND DISTAL ASPECT HAS TELFA DRESSING APPLIED, YELLOW SLOUGH NOTED IN WOUND BED WITH EDGES FIRM. PT ALERT AND ORIENTED X 4, ABLE TO TAKE ALL MEDICATIONS LAST NIGHT ONE TABLET AT TIME. PTS BED ALARM APPLIED, BED LOW POSITION, CALL LIGHT AT SIDE.
[2019-05-01 06:40] LABS: Hematocrit 33.8 % (33.0-51.0); Hemoglobin 10.2 g/dL (11.5-16.0); Mean Corpuscular HGB 28.9 pg (26.0-34.0); Mean Corpuscular HGB Conc 30.2 g/dL (31.5-36.5); Mean Corpuscular Volume 96 fL (80-100); Mean Platelet Volume 10.6 fL (9.1-12.4); Platelet Count 199 K/mm3 (150-400); RDW Coefficient Variation 15.8 % (11.7-14.2); RDW Standard Deviation 55.4 fL (35.1-46.3); Red Blood Cell Count 3.53 M/mm3 (3.80-5.20); White Blood Cell Count 5.32 K/mm3 (4.00-11.30)
[2019-05-01 06:58] LABS: Albumin, Blood 2.3 g/dL (3.4-5.0); Anion Gap 2 mmol/L (6-16); Blood Urea Nitrogen 24 mg/dL (8-24); Bun/Creatinine Ratio 21.8 (12.0-20.0); CO2, Blood 35 mmol/L (21-32); Calcium, Blood 8.2 mg/dL (8.5-10.1); Chloride, Blood 100 mmol/L (98-108); Glomerular Filtration Rate 52 (60-); Glucose, Blood 175 mg/dL (70-99); Phosphorus, Blood 3.3 mg/dL (2.5-4.9); Potassium, Blood 4.9 mmol/L (3.5-5.5); Sodium, Blood 137 mmol/L (136-145)
--- NOTE | 2019-05-01 13:04 | NUR ---
PT LOOSE STOOLS. DR. CHAMBERS NOTIFIED THAT PT IS HAVING LOOSE, ORANGISH STOOLS. ORDERED PROBIOTICS. WILL CONTINUE TO MONITOR.
--- NOTE | 2019-05-01 17:49 | NUR ---
05/01/19 174 Shabnam Lemos PT ON SCHEDULED ANTIBIOTICS
[2019-05-01 20:34] LABS: Percent Saturation 6.4 % (15.0-50.0)
[2019-05-02 05:25] LABS: BASOPHILS ABSOLUTE AUTO 0.07 K/mm3 (0.00-0.23); BASOPHILS PERCENT AUTO 1 % (0-2); EOSINOPHILS ABSOLUTE AUTO 0.41 K/mm3 (0.00-0.68); EOSINOPHILS PERCENT AUTO 8 % (0-6); Hematocrit 35.1 % (33.0-51.0); Hemoglobin 10.3 g/dL (11.5-16.0); IMMATURE GRAN ABSOLUTE AUTO 0.02 K/mm3 (0.00-0.10); IMMATURE GRAN PERCENT AUTO 0 % (0-1); LYMPHOCYTES ABSOLUTE AUTO 0.84 K/mm3 (0.84-5.20); LYMPHOCYTES PERCENT AUTO 16 % (21-46); MONOCYTES ABSOLUTE AUTO 0.61 K/mm3 (0.16-1.47); MONOCYTES PERCENT AUTO 11 % (4-13); Mean Corpuscular HGB 28.2 pg (26.0-34.0); Mean Corpuscular HGB Conc 29.3 g/dL (31.5-36.5); Mean Corpuscular Volume 96 fL (80-100); Mean Platelet Volume 10.3 fL (9.1-12.4); NEUTROPHILS ABSOLUTE AUTO 3.41 K/mm3 (1.96-9.15); NEUTROPHILS PERCENT AUTO 64 % (41-73); Platelet Count 197 K/mm3 (150-400); RDW Coefficient Variation 15.5 % (11.7-14.2); RDW Standard Deviation 54.8 fL (35.1-46.3); Red Blood Cell Count 3.65 M/mm3 (3.80-5.20); White Blood Cell Count 5.36 K/mm3 (4.00-11.30)
[2019-05-02 05:48] LABS: Albumin, Blood 2.3 g/dL (3.4-5.0); Anion Gap 5 mmol/L (6-16); Blood Urea Nitrogen 19 mg/dL (8-24); Bun/Creatinine Ratio 18.3 (12.0-20.0); CO2, Blood 34 mmol/L (21-32); Calcium, Blood 8.1 mg/dL (8.5-10.1); Chloride, Blood 100 mmol/L (98-108); Creatinine, Blood 1.04 mg/dL (0.40-1.00); Glomerular Filtration Rate 55 (60-); Glucose, Blood 179 mg/dL (70-99); Phosphorus, Blood 3.2 mg/dL (2.5-4.9); Potassium, Blood 3.1 mmol/L (3.5-5.5); Sodium, Blood 139 mmol/L (136-145)
--- NOTE | 2019-05-02 06:44 | NUR ---
SHIFT SUMMARY AWAKE ON/OFF T/O NIGHT TO USE BEDPAN. AOX4. DENIES SOB. REPORTS PAIN IN CHEST AROUND INCISION, MEDICATED 1X W/ULTRAM. DRESSING ON WOUND CHANGED, PIC TAKEN, WOUND HAS SMALL AMOUNT SEROSANGUINOUES DRAINAGE. LUNGS SOUND COURSE IN BASES & HAVE EXPIRATORY WHEEZES IN UPPER LOBES, SPO2 THIS AM @85% ON RA THEREFORE PLACED PT ON 1L SUPPLEMENTAL O2, SPO2 @93%. CALL LIGHT IN REACH.
--- NOTE | 2019-05-02 17:50 | NUR ---
PT IS A/OX3, PLEASANT AND COOPERATIVE, THE PT IS BEDREST AT THIS TIME, PT DECLINED TO GET UP TO THE CHAIR WHEN OFFERED TODAY, PT WAS MEDICATED WITH LIDOCAIN OINTMENT TO THE CHEST SHE REQUESTED THE PTS WOUND DRESSING WAS CHANGED USEING A CLEAN TECHNIQUE, THE PT TOLERATED THE PROCEDURE WELL, PT WAS INCONTNENT/ CONTINENT INTERMITTANTLY, PT APPEARED TO BE BREATHING EASILY ON O2 @ 2L/MIN AT THIS TIME, PT WAS REPOSTIONED T/O THE DAY, CALL LIGHT IN REACH
--- NOTE | 2019-05-03 03:02 | NUR ---
05/02/191999 PTS RIGHT KNEE SURGICAL INCISION PROXIMAL ASPECT HAS A PINPOINT HOLE NOTED THAT IS DRAINING CLEAR FLUID, SITE COVERED WITH 4 X 4 AND ABD PAD.
[2019-05-03 05:04] LABS: BASOPHILS ABSOLUTE AUTO 0.06 K/mm3 (0.00-0.23); BASOPHILS PERCENT AUTO 1 % (0-2); EOSINOPHILS ABSOLUTE AUTO 0.46 K/mm3 (0.00-0.68); EOSINOPHILS PERCENT AUTO 8 % (0-6); Hematocrit 33.1 % (33.0-51.0); IMMATURE GRAN ABSOLUTE AUTO 0.01 K/mm3 (0.00-0.10); IMMATURE GRAN PERCENT AUTO 0 % (0-1); LYMPHOCYTES ABSOLUTE AUTO 0.78 K/mm3 (0.84-5.20); LYMPHOCYTES PERCENT AUTO 14 % (21-46); MONOCYTES PERCENT AUTO 11 % (4-13); Mean Corpuscular HGB 28.9 pg (26.0-34.0); Mean Corpuscular HGB Conc 30.2 g/dL (31.5-36.5); Mean Corpuscular Volume 96 fL (80-100); Mean Platelet Volume 10.5 fL (9.1-12.4); NEUTROPHILS ABSOLUTE AUTO 3.71 K/mm3 (1.96-9.15); NEUTROPHILS PERCENT AUTO 66 % (41-73); Platelet Count 179 K/mm3 (150-400); RDW Coefficient Variation 15.6 % (11.7-14.2); Red Blood Cell Count 3.46 M/mm3 (3.80-5.20); White Blood Cell Count 5.62 K/mm3 (4.00-11.30)
[2019-05-03 05:24] LABS: Bun/Creatinine Ratio 14.7 (12.0-20.0); Calcium, Blood 7.9 mg/dL (8.5-10.1); Creatinine, Blood 1.09 mg/dL (0.40-1.00); Potassium, Blood 3.4 mmol/L (3.5-5.5)
--- NOTE | 2019-05-03 06:44 | NUR ---
SHIFT SUMMARY: 73 Y/O OBESE FEMALE RESTED COMFORTABLY ALL SHIFT. PT HAD SMALL PINPOINT ABSCESS THAT WAS NOTED RLE NEAR OLD GRAFT SITE WITH CLEAR FLUID LEAKING FROM SITE (COVERED WITH 4 X 4 AND ABD PAD) WITH SURGEON AND PCP TO BE NOTIFIED OF ISSUE THIS AM. PTS MIDSTERNAL OPEN WOUND IS PINK WITH EDGES HAVING SCANT YELLOW SLOUGH NOTED. PTS CURRENT WOUND ORDERS TO STERNUM NEED CLARIFICATION IT CURRENTLY READS "SCRUNCH A DRY 4 X 4 INTO BED AND COVER WITH MORE 4 X 4 GAUZE". THIS NURSE REVIEWED CURRENT WOUND ORDERS WITH CLINICAL COFFEE SAMPLER--BRADLEY TAYLOR RN LAST NIGHT. PT C/O CHEST PAIN AND WAS MEDICATED WITH TYLENOL LAST NIGHT WITH RELIEF FELT. PT USED BEDPAN FOR VOIDING LAST NIGHT. PTS BED ALARM APPLIED WITH BED IN LOW POSITION, CALL LIGHT AT SIDE.
--- NOTE | 2019-05-03 14:41 | NUR ---
wound care CALLED DR. DE LA TORRE TO CLARIFY WOUND CARE DRESSING PROCEDURE, WOUND CARE ORDER THAT WAS PUT IN BY DR. DE LA TORRE ON 05/01/19 IS THE CORRECT ORDER THAT HE WANTS
--- NOTE | 2019-05-03 17:08 | NUR ---
PT IS A/OX3, PLEASANT AND COOPERATIVE, SLOW TO RESPOND AT TIMES, IT WAS NOTICED ON NOC SHIFT THE THE PTS RIGHT LE SURGICAL WOUND INTERIOR KNEE HAD APPEARANTLY POPPED AND DRAINED AN EXTRA LARGE AMOUNT OF CLEAR FLUID, THE WOUND SITE CONTIUES TO WEEP A SMALL AMOUNT OF FLUID THE AREA HAS SWELLING AND SOME MILD REDNESS, IT WAS NOTICED THAT THE PT HAS REDNESS AND SWELLING IN LE'S AND AROUND HIPS AND LOW BACK, THE PT THIS AM WAS WHEEZY T/O AND ONLY WHEEZY AROUND NOON IN THE RIGHT SIDE, A CXR WAS ORDERED AND RT WAS CONSULTED THE PTS O2 SATS DROPPED TO MID 89% ON ROOM AIR O2 WAS REAPPLIED AT 1L/MIN, PT WAS GIVEN A BED BATH TODA, AND TOLERATED IT WELL, CALL LIGHT IN REACH WILL CONTINUE TO MONITOR AND ASSESS FOR CHANGES
--- NOTE | 2019-05-04 04:55 | NUR ---
SHIFT SUMMARY: 73 Y/O OBESE FEMALE RESTED COMFORTABLY ALL SHIFT. PT ABLE TO TAKE ALL MEDICATIONS WITHOUT ISSUE, DENIES PAIN OR NAUSEA. PTS RIGHT KNEE WOUND PINHOLE HAS STOPPED DRAINING FLUID WITH DRESSING REMOVED BY THIS NURSE. PTS STERNUM WOUND HAS REDNESS NOTED AROUND EDGES, WITH SLOUGH AND PINK GRANULATION NOTED IN WOUND BED (DRY DRESSING APPLIED ORDERED BY SURGEON). PT HAPPY AND COOPERATIVE, ALERT AND ORIENTED X 4. PTS LEFT UPPER ARM POWER GLIDE WILL NOT DRAW BACK BLOOD, HOWEVER; FLUSHES EASILY. PT USED BEDPAN ALL SHIFT. PTS BED LOW POSITION, CALL LIGHT AT SIDE.
[2019-05-04 11:56] LABS: Free Thyroxine 0.78 ng/dL (0.70-1.60); Thyroid Stimulating Hormone 31.5 uIU/mL (0.360-4.800); Triiodothyronine, Free 0.81 pg/mL (2.18-3.98)
== END 2019-05-04 18:46 | DRG 920 ==
LOC: ER 17:51 → MEDS 20:26 → ENPENDDIS 05-04 11:15 → MEDS 05-04 18:46
PROVIDERS: Emergency Medicine; Internal Medicine; Surgery; ADMIT Hospitalist
PROC: 0HB5XZZ Excision of Chest Skin, External Approach (ICD-10-PCS; principal; 2019-05-01 17:30)
DX: T81.31XA Disruption of external operation (surgical) wound, not elsewhere classified, initial encounter (principal); T81.42XA Infection following a procedure, deep incisional surgical site, initial encounter; I50.32 Chronic diastolic (congestive) heart failure; E87.2 Acidosis; I13.0 Hypertensive heart and chronic kidney disease with heart failure and stage 1 through stage 4 chronic kidney disease, or unspecified chronic kidney disease; N17.9 Acute kidney failure, unspecified; I82.812 Embolism and thrombosis of superficial veins of left lower extremity; I25.10 Atherosclerotic heart disease of native coronary artery without angina pectoris; Z95.5 Presence of coronary angioplasty implant and graft; I48.2 Chronic atrial fibrillation; K21.9 Gastro-esophageal reflux disease without esophagitis; E78.5 Hyperlipidemia, unspecified; Z79.82 Long term (current) use of aspirin; Z79.84 Long term (current) use of oral hypoglycemic drugs; E87.70 Fluid overload, unspecified; N18.3 Chronic kidney disease, stage 3 (moderate); E87.6 Hypokalemia; B96.1 Klebsiella pneumoniae [K. pneumoniae] as the cause of diseases classified elsewhere; E11.22 Type 2 diabetes mellitus with diabetic chronic kidney disease; I25.2 Old myocardial infarction; Z96.649 Presence of unspecified artificial hip joint
CPT/HCPCS: 36415; 71046; 80048; 80053; 80069; 80202; 81001; 82607; 82728; 82746; 82947; 83540; 83550; 83605; 83880; 84439; 84443; 84481; 85025; 85027; 87040; 87070; 87075; 87077; 87086; 87186; 87205; 93005; 93010; 93971; 96361; 96365; 96375; 97110; 97162; 97530; 99285-25; A9270; C1751; J0696; J0744; J1650; J2250; J2405; J2704; J3010; J3370; J7030; J7050; J7120

== ENCOUNTER 2019-05-07 11:55 | Emergency (ER) | payer OTHER ==
[~2019-05-07] VITALS: Ht 165.1 cm; Wt 113.4 kg
[~2019-05-07 11:55] MED LIST changes: +Adult Glycerin1 EACH PR; +CVS DISPOSABLE399 ML PR; +LIDOCAINE1 EACH TOP; +Milk Of Ma400 MG/5 M PO
[2019-05-07] MEDS ORDERED: INSULANPEN SC (12:25)
[2019-05-07] MEDS ORDERED: FERSU300 PO (12:26)
[2019-05-07] MEDS ORDERED: NOVOLOG FL100 UNIT/1 SC (12:32)
[2019-05-07] MEDS ORDERED: NOVOLOG FL100 UNIT/2 SC (12:33)
[2019-05-07] MEDS ORDERED: TORSE20 PO (12:34)
[2019-05-07] MEDS ORDERED: [UNRECOGNIZED DRUG - OTHER] TOP (12:38)
[2019-05-07] MEDS ORDERED: DOCU100 PO (12:39)
[2019-05-07 12:56] LABS: BASOPHILS ABSOLUTE AUTO 0.07 K/mm3 (0.00-0.23); BASOPHILS PERCENT AUTO 1 % (0-2); EOSINOPHILS ABSOLUTE AUTO 0.38 K/mm3 (0.00-0.68); EOSINOPHILS PERCENT AUTO 7 % (0-6); Hematocrit 34.3 % (33.0-51.0); Hemoglobin 10.2 g/dL (11.5-16.0); IMMATURE GRAN ABSOLUTE AUTO 0.02 K/mm3 (0.00-0.10); IMMATURE GRAN PERCENT AUTO 0 % (0-1); LYMPHOCYTES ABSOLUTE AUTO 0.73 K/mm3 (0.84-5.20); LYMPHOCYTES PERCENT AUTO 13 % (21-46); MONOCYTES ABSOLUTE AUTO 0.58 K/mm3 (0.16-1.47); MONOCYTES PERCENT AUTO 10 % (4-13); Mean Corpuscular HGB 28.5 pg (26.0-34.0); Mean Corpuscular HGB Conc 29.7 g/dL (31.5-36.5); Mean Corpuscular Volume 96 fL (80-100); Mean Platelet Volume 10.1 fL (9.1-12.4); NEUTROPHILS ABSOLUTE AUTO 3.85 K/mm3 (1.96-9.15); NEUTROPHILS PERCENT AUTO 68 % (41-73); Platelet Count 189 K/mm3 (150-400); RDW Standard Deviation 56.9 fL (35.1-46.3); Red Blood Cell Count 3.58 M/mm3 (3.80-5.20); White Blood Cell Count 5.63 K/mm3 (4.00-11.30)
[2019-05-07 13:20] LABS: Albumin, Blood 2.3 g/dL (3.4-5.0); Albumin/Globulin Ratio 0.6 (0.8-1.8); Bilirubin, Total 0.5 mg/dL (0.1-1.0); Bun/Creatinine Ratio 14.4 (12.0-20.0); Calcium, Blood 8.4 mg/dL (8.5-10.1); Creatinine, Blood 1.18 mg/dL (0.40-1.00); Potassium, Blood 4.2 mmol/L (3.5-5.5); Total Protein, Blood 6.3 g/dL (6.4-8.2); Troponin I 0.021 ng/mL (0.000-0.040)
[2019-05-07] MEDS ORDERED: Vibramycin100 MG PO (14:45)
[2019-05-08] MEDS ORDERED: SPIR25 PO (15:00)
[2019-05-08] MEDS ORDERED: ASCO500 PO (15:01)
[2019-05-08] MEDS ORDERED: Florastor250 MG PO (15:02)
[2019-05-08] MEDS ORDERED: Lopressor 25 mg25 MG PO (15:03)
[2019-05-08] MEDS ORDERED: GABA100 PO (15:04)
== END 2019-05-07 14:49 | disposition home or self-care (01) ==
LOC: ER 11:55
PROVIDERS: Emergency Medicine
DX: L03.116 Cellulitis of left lower limb (principal); L03.115 Cellulitis of right lower limb; J90 Pleural effusion, not elsewhere classified; Z88.5 Allergy status to narcotic agent; Z88.0 Allergy status to penicillin; Z88.2 Allergy status to sulfonamides; Z91.048 Other nonmedicinal substance allergy status; Z88.1 Allergy status to other antibiotic agents; Z79.899 Other long term (current) drug therapy; Z79.4 Long term (current) use of insulin; Z79.82 Long term (current) use of aspirin; I11.0 Hypertensive heart disease with heart failure; I50.32 Chronic diastolic (congestive) heart failure; K21.9 Gastro-esophageal reflux disease without esophagitis
CPT/HCPCS: 36415; 71046; 80053; 83880; 84484; 85025; 93005; 93010; 99285-25

== ENCOUNTER 2019-05-08 07:30 | Day surgery (SDC) | payer OTHER ==
[~2019-05-08 07:30] MED LIST changes: +DOCU100 PO; +FERSU300 PO; +NOVOLOG FL100 UNIT/1 SC; +NOVOLOG FL100 UNIT/2 SC; +TORSE20 PO; +Vibramycin100 MG PO; +[UNRECOGNIZED DRUG - OTHER] TOP
[2019-05-08] MEDS ORDERED: SPIR25 PO (15:00)
[2019-05-08] MEDS ORDERED: ASCO500 PO (15:01)
[2019-05-08] MEDS ORDERED: Florastor250 MG PO (15:02)
[2019-05-08] MEDS ORDERED: Lopressor 25 mg25 MG PO (15:03)
[2019-05-08] MEDS ORDERED: GABA100 PO (15:04)
== END 2019-05-08 23:19 | disposition home or self-care (01) ==
LOC: WOUND 07:30
DX: T81.31XA Disruption of external operation (surgical) wound, not elsewhere classified, initial encounter (principal); S21.109A Unspecified open wound of unspecified front wall of thorax without penetration into thoracic cavity, initial encounter; S81.801A Unspecified open wound, right lower leg, initial encounter; I13.0 Hypertensive heart and chronic kidney disease with heart failure and stage 1 through stage 4 chronic kidney disease, or unspecified chronic kidney disease; E11.22 Type 2 diabetes mellitus with diabetic chronic kidney disease; I50.32 Chronic diastolic (congestive) heart failure; N18.3 Chronic kidney disease, stage 3 (moderate); I48.2 Chronic atrial fibrillation; I25.10 Atherosclerotic heart disease of native coronary artery without angina pectoris; J44.9 Chronic obstructive pulmonary disease, unspecified; Z91.048 Other nonmedicinal substance allergy status; Z88.5 Allergy status to narcotic agent; Z88.1 Allergy status to other antibiotic agents; Z88.0 Allergy status to penicillin; Z88.2 Allergy status to sulfonamides; Z79.899 Other long term (current) drug therapy; Z79.82 Long term (current) use of aspirin; Z79.01 Long term (current) use of anticoagulants; Z79.4 Long term (current) use of insulin
CPT/HCPCS: 36415; 71045; 80053; 85025; 93005; 93010; 99284-25

== ENCOUNTER 2019-05-13 14:50 | Day surgery (SDC) | payer OTHER ==
[~2019-05-13 14:50] MED LIST changes: +ASCO500 PO; +Florastor250 MG PO; +GABA100 PO; +Lopressor 25 mg25 MG PO; +SPIR25 PO
== END 2019-05-13 23:39 | disposition home or self-care (01) ==
LOC: WOUND 14:50
DX: T81.31XA Disruption of external operation (surgical) wound, not elsewhere classified, initial encounter (principal); S81.801A Unspecified open wound, right lower leg, initial encounter; I10 Essential (primary) hypertension; E11.40 Type 2 diabetes mellitus with diabetic neuropathy, unspecified; D64.9 Anemia, unspecified; I25.2 Old myocardial infarction; J44.9 Chronic obstructive pulmonary disease, unspecified

== ENCOUNTER 2019-05-23 22:15 | Inpatient (IN) | payer OTHER ==
[~2019-05-23] VITALS: Ht 165.1 cm; Wt 113.3 kg
[2019-05-23] MEDS ORDERED: INSULANPEN SC (23:05)
[2019-05-23] MEDS ORDERED: Pedi-Dri 100,0060 GM TOP (23:06)
[2019-05-23 23:18] LABS: BASOPHILS ABSOLUTE AUTO 0.06 K/mm3 (0.00-0.23); BASOPHILS PERCENT AUTO 1 % (0-2); EOSINOPHILS ABSOLUTE AUTO 0.39 K/mm3 (0.00-0.68); EOSINOPHILS PERCENT AUTO 6 % (0-6); Hematocrit 37.8 % (33.0-51.0); Hemoglobin 10.8 g/dL (11.5-16.0); IMMATURE GRAN ABSOLUTE AUTO 0.01 K/mm3 (0.00-0.10); IMMATURE GRAN PERCENT AUTO 0 % (0-1); LYMPHOCYTES ABSOLUTE AUTO 0.72 K/mm3 (0.84-5.20); LYMPHOCYTES PERCENT AUTO 12 % (21-46); MONOCYTES PERCENT AUTO 10 % (4-13); Mean Corpuscular HGB 28.3 pg (26.0-34.0); Mean Corpuscular HGB Conc 28.6 g/dL (31.5-36.5); Mean Corpuscular Volume 99 fL (80-100); Mean Platelet Volume 11.4 fL (9.1-12.4); NEUTROPHILS ABSOLUTE AUTO 4.39 K/mm3 (1.96-9.15); NEUTROPHILS PERCENT AUTO 71 % (41-73); Platelet Count 190 K/mm3 (150-400); RDW Coefficient Variation 19.2 % (11.7-14.2); RDW Standard Deviation 69.6 fL (35.1-46.3); Red Blood Cell Count 3.81 M/mm3 (3.80-5.20); White Blood Cell Count 6.17 K/mm3 (4.00-11.30)
[2019-05-23 23:38] LABS: Alanine Aminotransfer (ALT/SGP 27 U/L (12-78); Albumin, Blood 2.4 g/dL (3.4-5.0); Albumin/Globulin Ratio 0.6 (0.8-1.8); Alk Phos 240 U/L (50-136); Aspartate Aminotrans (AST/SGOT 39 U/L (12-37); Bilirubin, Total 0.5 mg/dL (0.1-1.0); Blood Urea Nitrogen 24 mg/dL (8-24); Bun/Creatinine Ratio 28.8 (12.0-20.0); Calcium, Blood 8.4 mg/dL (8.5-10.1); Chloride, Blood 95 mmol/L (98-108); Creatinine, Blood 0.83 mg/dL (0.40-1.00); Globulin, Blood 4.3 g/dL (2.2-4.0); Glomerular Filtration Rate >60 (60-); Glucose, Blood 309 mg/dL (70-99); Sodium, Blood 142 mmol/L (136-145); Total Protein, Blood 6.7 g/dL (6.4-8.2); Troponin I <0.015 ng/mL (0.000-0.040)
[2019-05-23 23:41] LABS: Anion Gap Unable to Calculate mmol/L (6-16); CO2, Blood >45 mmol/L (21-32)
[2019-05-23 23:58] LABS: PCO2 Arterial 83.2 mmHg (35-45); PO2 Arterial 152 mmHg (80-100); pH Blood Arterial 7.37 (7.35-7.45)
[2019-05-24 05:32] LABS: BASOPHILS ABSOLUTE AUTO 0.04 K/mm3 (0.00-0.23); BASOPHILS PERCENT AUTO 1 % (0-2); EOSINOPHILS ABSOLUTE AUTO 0.37 K/mm3 (0.00-0.68); EOSINOPHILS PERCENT AUTO 6 % (0-6); Hematocrit 35.6 % (33.0-51.0); Hemoglobin 10.4 g/dL (11.5-16.0); IMMATURE GRAN ABSOLUTE AUTO 0.02 K/mm3 (0.00-0.10); IMMATURE GRAN PERCENT AUTO 0 % (0-1); LYMPHOCYTES PERCENT AUTO 10 % (21-46); MONOCYTES ABSOLUTE AUTO 0.58 K/mm3 (0.16-1.47); MONOCYTES PERCENT AUTO 10 % (4-13); Mean Corpuscular HGB 28.7 pg (26.0-34.0); Mean Corpuscular HGB Conc 29.2 g/dL (31.5-36.5); Mean Corpuscular Volume 98 fL (80-100); Mean Platelet Volume 11.5 fL (9.1-12.4); NEUTROPHILS ABSOLUTE AUTO 4.37 K/mm3 (1.96-9.15); NEUTROPHILS PERCENT AUTO 73 % (41-73); Platelet Count 169 K/mm3 (150-400); RDW Coefficient Variation 18.9 % (11.7-14.2); RDW Standard Deviation 68.8 fL (35.1-46.3); Red Blood Cell Count 3.62 M/mm3 (3.80-5.20); White Blood Cell Count 5.98 K/mm3 (4.00-11.30)
[2019-05-24 05:49] LABS: PO2 Arterial 72.6 mmHg (80-100); pH Blood Arterial 7.41 (7.35-7.45)
[2019-05-24 05:50] LABS: PCO2 Arterial 76.9 mmHg (35-45)
[2019-05-24 05:50] LABS: Blood Urea Nitrogen 24 mg/dL (8-24); Bun/Creatinine Ratio 30.2 (12.0-20.0); Calcium, Blood 8.3 mg/dL (8.5-10.1); Chloride, Blood 96 mmol/L (98-108); Creatinine, Blood 0.79 mg/dL (0.40-1.00); Glomerular Filtration Rate >60 (60-); Glucose, Blood 223 mg/dL (70-99); Potassium, Blood 3.7 mmol/L (3.5-5.5); Sodium, Blood 142 mmol/L (136-145)
[2019-05-24 06:06] LABS: Anion Gap Unable to Calculate mmol/L (6-16)
[2019-05-24 06:10] LABS: CO2, Blood >45 mmol/L (21-32)
--- NOTE | 2019-05-24 18:54 | NUR ---
LATE ENTRY FOR 1430- PT ADMITTED TO PCU 11 FROM ED AT 1430, VSS, ON BIPAP 14/6 35% FIO2. VALORIE RT PRESENT, CONT PULSE OX APPLIED. TELE PLACED A-FIB 102. ORIENTD TO ROOM AND SAFTEY.
--- NOTE | 2019-05-24 19:34 | NUR ---
SUMMARY- PT A/O, FOLLOWS COMMANDS TO CALIBRATION TECHNICIAN, NABIL, UNABLE TO COMMUNICATE WELL RELATED TO BIPAPL. LUNGS DIM, MOIST NON PROD COUGH. BREATHING OVER BIPAP AT RATE 14-16, FOI2 35%. GIVEN A BREAK FOR AN HOUR DURING DINNER WITH O2 NC 4L, SATS 99%, BROUGHT DOWN TO 2L. TOLERATED MILD AND BITES OF FRUIT, KEPT FALLING ASLEEP DURING DINNER. DR GRACE CONSULTED AND CAME BY TO EVAL PT, ORDERS RECEIVED. METOPROLOL AND LASIX GIVEN THIS PM PER ORDERS. CHANGED INCONT AND APPLIED NYSTATIN TO ARNIE YEAST. WOUND VAC TO CHEST INTACT. OTHER SKIN ISSUES NEED TO BE PICTURED, NOC RN AWARE.
[2019-05-25 04:07] LABS: BASOPHILS ABSOLUTE AUTO 0.06 K/mm3 (0.00-0.23); BASOPHILS PERCENT AUTO 1 % (0-2); EOSINOPHILS PERCENT AUTO 5 % (0-6); Hematocrit 37.2 % (33.0-51.0); IMMATURE GRAN ABSOLUTE AUTO 0.02 K/mm3 (0.00-0.10); IMMATURE GRAN PERCENT AUTO 0 % (0-1); LYMPHOCYTES PERCENT AUTO 10 % (21-46); MONOCYTES ABSOLUTE AUTO 0.47 K/mm3 (0.16-1.47); MONOCYTES PERCENT AUTO 8 % (4-13); Mean Corpuscular HGB 28.7 pg (26.0-34.0); Mean Corpuscular HGB Conc 29.6 g/dL (31.5-36.5); Mean Corpuscular Volume 97 fL (80-100); Mean Platelet Volume 11.5 fL (9.1-12.4); NEUTROPHILS ABSOLUTE AUTO 4.62 K/mm3 (1.96-9.15); NEUTROPHILS PERCENT AUTO 76 % (41-73); Platelet Count 167 K/mm3 (150-400); RDW Coefficient Variation 19.6 % (11.7-14.2); RDW Standard Deviation 70.3 fL (35.1-46.3); Red Blood Cell Count 3.83 M/mm3 (3.80-5.20); White Blood Cell Count 6.07 K/mm3 (4.00-11.30)
[2019-05-25 04:25] LABS: Blood Urea Nitrogen 21 mg/dL (8-24); Bun/Creatinine Ratio 27.5 (12.0-20.0); Calcium, Blood 8.7 mg/dL (8.5-10.1); Chloride, Blood 95 mmol/L (98-108); Creatinine, Blood 0.76 mg/dL (0.40-1.00); Glomerular Filtration Rate >60 (60-); Glucose, Blood 135 mg/dL (70-99); Potassium, Blood 3.4 mmol/L (3.5-5.5); Sodium, Blood 143 mmol/L (136-145)
[2019-05-25 04:39] LABS: Anion Gap Unable to Calculate mmol/L (6-16); CO2, Blood >45 mmol/L (21-32)
[2019-05-25 05:14] LABS: PCO2 Arterial 68.9 mmHg (35-45); PO2 Arterial 107 mmHg (80-100); pH Blood Arterial 7.44 (7.35-7.45)
--- NOTE | 2019-05-25 06:24 | NUR ---
SHIFT SUMMARY PT SLEEPING IN ROOM COIMFORTABLY AT THIS TIME. NO ACUTE CHANGES IN STATUS T/O NIGHT. PT SLEPT T/O SHIFT AND REMAINED LETHARGIC UPON WAKING. PT WAS ABLE TO FOLLOW SHORT COMMANDS SLOWLY, UNABLE TO WAKE LONG ENOUGH TO ANSWER MORE THAN YES OR NO QUESTIONS. PT REMAINED ON BIPAP T/O NIGHT AND TOLERATED WELL. RESP EVEN UNLABORED ON BIPAP W/ SATS >92%. PT APPEARS TO BE COMFORTABLE, AND FREE OF PAIN. PT WAS INCONTINENT OF STOOL AND URINE, ATTENDS SATURATED. PT ABLE TO TOLERATE TURNS, LINEN CHANGED, NEW ATTENDS IN PLACE. CALL LIGHT IN REACH.
[2019-05-25 10:57] LABS: Adenovirus Not Detected (NOT DETECT); Bordetella pertussis Not Detected (NOT DETECT); Chlamydophila pneumoniae Not Detected (NOT DETECT); Coronavirus 229E Not Detected (NOT DETECT); Coronavirus HKU1 Not Detected (NOT DETECT); Coronavirus NL63 Not Detected (NOT DETECT); Coronavirus OC43 Not Detected (NOT DETECT); Human Metapneumovirus Not Detected (NOT DETECT); Human Rhinovirus/Enterovirus Not Detected (NOT DETECT); Influenza A Not Detected (NOT DETECT); Influenza A/2009-H1 Not Detected (NOT DETECT); Influenza A/H1 Not Detected (NOT DETECT); Influenza A/H3 Not Detected (NOT DETECT); Influenza B Not Detected (NOT DETECT); Mycoplasma pneumoniae Not Detected (NOT DETECT); Parainfluenza Virus 1 Not Detected (NOT DETECT); Parainfluenza Virus 2 Not Detected (NOT DETECT); Parainfluenza Virus 3 Not Detected (NOT DETECT); Parainfluenza Virus 4 Not Detected (NOT DETECT); Respiratory Syncytial Virus Not Detected (NOT DETECT)
--- NOTE | 2019-05-25 15:27 | NUR ---
Patient is lying in bed with a breathing mask and only able to communicate minimally. Patient is known to this board writer from previous visits so I knew that praying for the patient would be meaningful. I gladly provided prayer. I will continue to remain available to patient and family.
--- NOTE | 2019-05-25 18:43 | NUR ---
SHIFT SUMMARY PT LETHARGIC. PT OPENS EYES TO VERBAL STIMULUS AND FOLLOWS DIRECTIONS. PT ONLY RESPONDS BY NODDING YES OR NO, AND STATES YES OR NO AT TIMES. VS HAVE BEEN STABLE. PT ON AND OFF BIPAP THIS SHIFT WITH FI02 OF 30% OR ON 2L NC. PT HAS WET COUGH, BUT UNABLE TO COUGH UP SPUTUM. PT INCONTINENT OF BOWEL AND BLADDER. PT REPOSITIONED Q2H. WOUND TO RIGHT INNER THIGH DRESSING CHANGED AND REPACKED. WILL CONTINUE TO MONITOR AND REPORT TO ONCOMING RN.
[2019-05-25 19:08] LABS: Appearance, Urine Hazy (Clear); Bilirubin, Urine Neg (Neg); Blood, Urine 1+ (Neg); Color, Urine Yellow (P-Yellow); Glucose Qualitative, Urine Neg (Neg); Ketones, Urine Neg (Neg); Leukocyte Esterase, Urine 2+ (Neg); Nitrite, Urine Neg (Neg); Protein, Urine 1+ (Neg); Urobilinogen, Urine 2+ (Normal)
[2019-05-25 19:13] LABS: Bacteria Few /hpf; Red Blood Cells, Urine 0-2 /hpf (0-2); Squamous Epithelial Cells Not Seen /hpf (Few); White Blood Cells, Urine 25-50 /hpf (0-5)
[2019-05-25 19:14] LABS: Transitional Epithelial Cells Few /hpf (0-Rare); Yeast/Fungi Urine Mod /hpf
[2019-05-26 04:06] LABS: BASOPHILS ABSOLUTE AUTO 0.06 K/mm3 (0.00-0.23); BASOPHILS PERCENT AUTO 1 % (0-2); EOSINOPHILS ABSOLUTE AUTO 0.04 K/mm3 (0.00-0.68); EOSINOPHILS PERCENT AUTO 1 % (0-6); Hematocrit 38.6 % (33.0-51.0); Hemoglobin 11.6 g/dL (11.5-16.0); IMMATURE GRAN ABSOLUTE AUTO 0.02 K/mm3 (0.00-0.10); IMMATURE GRAN PERCENT AUTO 0 % (0-1); LYMPHOCYTES ABSOLUTE AUTO 0.63 K/mm3 (0.84-5.20); LYMPHOCYTES PERCENT AUTO 8 % (21-46); MONOCYTES ABSOLUTE AUTO 0.57 K/mm3 (0.16-1.47); MONOCYTES PERCENT AUTO 7 % (4-13); Mean Corpuscular HGB 28.4 pg (26.0-34.0); Mean Corpuscular HGB Conc 30.1 g/dL (31.5-36.5); Mean Corpuscular Volume 95 fL (80-100); Mean Platelet Volume 11.4 fL (9.1-12.4); NEUTROPHILS ABSOLUTE AUTO 6.82 K/mm3 (1.96-9.15); NEUTROPHILS PERCENT AUTO 84 % (41-73); Platelet Count 212 K/mm3 (150-400); RDW Coefficient Variation 19.8 % (11.7-14.2); RDW Standard Deviation 68.1 fL (35.1-46.3); Red Blood Cell Count 4.08 M/mm3 (3.80-5.20); White Blood Cell Count 8.14 K/mm3 (4.00-11.30)
[2019-05-26 04:26] LABS: Albumin, Blood 2.5 g/dL (3.4-5.0); Anion Gap 5 mmol/L (6-16); Blood Urea Nitrogen 26 mg/dL (8-24); Bun/Creatinine Ratio 30.2 (12.0-20.0); CO2, Blood 42 mmol/L (21-32); Calcium, Blood 8.9 mg/dL (8.5-10.1); Chloride, Blood 94 mmol/L (98-108); Creatinine, Blood 0.86 mg/dL (0.40-1.00); Glomerular Filtration Rate >60 (60-); Glucose, Blood 177 mg/dL (70-99); Magnesium, Blood 1.8 mg/dL (1.6-2.4); Phosphorus, Blood 3.5 mg/dL (2.5-4.9); Potassium, Blood 3.6 mmol/L (3.5-5.5); Sodium, Blood 141 mmol/L (136-145)
--- NOTE | 2019-05-26 04:52 | NUR ---
SHIFT SUMMARY PT MORE ALERT, ABLE TO ANSWER SOME Y/N QUESTIONS, SPEAKING SOME WORDS THIS AM. WET PRODUCTIVE COUGH W/ PT SWALLOWING SPUTUM DESPITE ENCOURAGEMENT TO SPIT OUT. SPO2 > 92% ON 2L NC, WEARING BIPAP INTERMITTENTLY. MONITOR SHOWS AFIB, HR 90-130. PT CONTINUES TO BE NPO, AWAITING SWALLOW EVAL. PO MEDICATIONS HELD THIS SHIFT. PT C/O NAUSEA, MEDICATED PER EMAR. R THIGH WOUND W/ DRESSING IN PLACE C/D/I. PT INCONTINENT OF URINE AND BOWEL, PRN ARNIE CARE/ATTENDS CHANGES PROVIDED. WILL CONTINUE TO MONITOR AND PROVIDE CARE UNTIL REPORT OFF TO DAY SHIFT RN.
[2019-05-26 05:22] LABS: PCO2 Arterial 61.3 mmHg (35-45); PO2 Arterial 74.3 mmHg (80-100); pH Blood Arterial 7.47 (7.35-7.45)
--- NOTE | 2019-05-26 14:46 | NUR ---
SPOKE WITH TERE, NURSE AT [facility], WHO STATES PT BASELINE IS A&Ox4 WITH INTERMITTENT CONFUSION, CLEAR SPEECH, NO SWALLOWING ISSUES, REGULAR TEXTURE MEALS AND FILI LIFT FOR TRANSFERS.
--- NOTE | 2019-05-26 17:04 | NUR ---
SHIFT SUMMARY PT MORE ALERT TODAY, WHEN SLEEPING AWAKES EASILY WITH VERBAL STIMULI. ANSWERS SOME QUESTION VERBALLY, LIKE BUT NODS YES/NO AT OTHER TIMES. PT ON 2L O2 VIA NC, LS COARSE T/O DIM IN BASES. PT ON BIPAP AT NOC. PT DENIES PAIN, NO S/SX NOTED. PT DENIES NAUSEA, REFUSING MEAL TRAY THIS AFTERNOON, ST STARTED ON PUREE. PT HAVING LOOSE/LIQUID BM, DR ROMO NOTIFIED, NEW ORDERS FOR C/DIFF R/O, PT PLACED IN ISOLATION UNTIL RESULTS. PT RECEIVING IV LASIX. BP ELEVATED, TRENDING DOWN, OTHER VSS. NO OTHER ACUTE CHANGES NOTED DURING SHIFT WILL CONTINUE TO MONITOR. UNTIL REPORT GIVEN TO ONCOMING RN.
--- NOTE | 2019-05-27 00:47 | NUR ---
ASSUMED PT CARE AT 1915 UPON BEDSIDE REPORT PT WAS UP IN CHAIR SLEEPING. SHE WAS EASILY AROUSABLE. PT NOTED TO BE NONVERBAL. ABLE TO SHAKE HEAD TO "YES/NO" QUESTIONS, BUT UNABLE TO COMMUNICATE OTHER THAN THAT. PT SHOOK HER HEAD "NO" WHEN ASKED IF SHE KNEW WHERE SHE WAS. REORIENTED TO PLACE, TIME, AND SITUATION. PT ABLE TO FOLLOW COMMANDS. IT WAS REPORTED THAT PT HAD AN ST EVALUATION TODAY WITH RECOMMENDATIONS FOR PUREE DIET; THEREFORE, ATTEMPTED ADMINISTRATION OF MEDICATIONS: ONE AT A TIME WITH APPLESAUCE WITH PT SITTING UPRIGHT AT 90 DEGREES (PER ORDERS). PT DEMONSTRATED ADEQUATE SWALLOWING WITH NO RESIDUAL OR POCKETING NOTED, NO COUGHING OR S/SX OF ASPIRATION T/O ENTIRE ADMINISTRATION OF MEDICATIONS. SHE COUGHED AND CLEARED HER THROAT WHEN INSTRUCTED, WELL SWALLOWED WHEN INSTRUCTED. HOWEVER, AFTER PT WAS PLACED BACK INTO BED FOR ATTEND MANAGEMENT AND REPOSITIONING. SHORTLY AFTER, RESPIRATORY THERAPY HAD ARRIVED FOR A BREATHING TX AND PLACEMENT OF BIPAP MASK; HOWEVER, UPON PLACEMENT OF BIPAP MASK PT FELT NAUSEAS AND STARTED GAGGING LIKE SHE HAD SOMETHING STUCK IN HER THROAT. SAT PT ALL THE WAY UP FROM 30 DEGREES TO 90 DEGREES; INSTRUCTED HER TO COUGH TO CLEAR HER THROAT; HOWEVER, SHE WAS UNABLE TO TAKE A BREATH TO DO SO. PT FINALLY ABLE TO CLEAR HER THROAT AND PRODUCED A SMALL AMOUNT OF THICK YELLOW/ORANGE SPUTUM/EMESIS. NO MEDICATIONS OR GRANULES NOTED TO EMESIS. PT REMAINED POSITIONED IN HIGH FOWLERS; LEFT BIPAP MASK OFF. WHEN ASKED IF SHE STILL FELT NAUSEAS, SHE SHOOK HER HEAD "NO". DURING EPISODE PT'S OXYGEN SATURATIONS DECREASED TO 70'S, BUT QUICKLY RECOVERED SHE WAS ABLE TO CLEAR HER SECRETIONS/EMESIS. CALL LIGHT LEFT IN REACH WITH FREQUENT VISUAL CHECKS BEING PERFORMED.
--- NOTE | 2019-05-27 01:19 | NUR ---
CHANGED DRESSING TO PT'S HARVEST SITE TO RIGHT INNER THIGH; CALLED KENNY BARCENAS NP FOR CULTURE ORDERS D/T MODERATE AMOUNTS OF SEROSANGUINEOUS DRAINAGE; NO NEW ORDERS. REPACKED WOUND WITH CALCIUM ALGINATE ROPE AND COVERED WITH EXUDRY DRESSING.
--- NOTE | 2019-05-27 04:05 | NUR ---
END OF SHIFT SUMMARY PT HAS REMAINED NONVERBAL T/O SHIFT. ABLE TO SHAKE HEAD YES/NO TO QUESTIONS. RESPONDS APPROPRIATELY. ASKED PT IF SHE WAS NONVERBAL PRIOR TO THIS VISIT AND SHE SHOOK HER HEAD "NO". ASKED PT IF SHE THINKS ABOUT WHAT SHE WOULD LIKE TO SAY, BUT HAS A DIFFICULT TIME FORMING THE WORDS TO SAY IT, AND SHE SHOOK HER HEAD "YES". SHE DOES APPEAR SLOW TO RESPOND, GENERALIZED WEAKNESS NOTED, NO FACIAL DROOPING NOTED. PT HAS BEEN INCONTINENT OF BLADDER; APPEARS TO HAVE DARK BRUISING/SCARRING TO ARNIE AREA. APPLIED CREAM AFTER EACH INCONTINENT EPISODE. NO FAMILY AT BEDSIDE. FREQUENT VISUAL CHECKS PT HASN'T UTILIZED HER CALL LIGHT AND CAN'T MAKE HER NEEDS KNOWN REGULARLY. WOUND VAC REMAINS INTACT AND PATENT TO MID STERNAL CHEST WALL; DRESSING TO RIGHT INNER THIGH REMAINS INTACT. WILL CONTINUE TO MONITOR UNTIL REPORT IS HANDED OFF TO ONCOMING RN.
--- NOTE | 2019-05-27 07:08 | NUR ---
Bedside report received from DAX Horton. Pt appears to be sleeping. Eyes are closed in dimly lit room, respirations even and unlabored.
--- NOTE | 2019-05-27 07:46 | NUR ---
ASSUMED CARE OF PT AT 0700. PT RESTING IN BED APPEARS TO BE SLEEPING. PT RESP 12-14, BREATHING EVEN AND UNLABORED. PT RESPONDS TO VERBAL STIMULI, MINIMAL VERBAL RESPONSE, STATES AND YES/NO BUT MOSTLY SHAKES HEAD YES/NO. PT ON 2L O2 VIA NC SPO2 95-97%, LS COARSE, DIM AT BASES. PT DENIES NAUSEA, SOB AND NUM/T. 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 VSS. WILL CONTINUE TO MONITOR.
[2019-05-27 11:59] LABS: Free Thyroxine 0.81 ng/dL (0.70-1.60)
[2019-05-27 12:02] LABS: Thyroid Stimulating Hormone 41.9 uIU/mL (0.360-4.800); Triiodothyronine, Free 0.93 pg/mL (2.18-3.98)
--- NOTE | 2019-05-27 14:24 | NUR ---
WOUND VAC REFERENCE # (PLACED TODAY @ 1400.) wound vac reference # is [id number]. Serial # [id number]
--- NOTE | 2019-05-27 14:27 | NUR ---
MID BRUNSON DRESSING CHANGES, WOUND VAC CHANGED OUT TO HOSPITAL WOUND VAC, NEW PICTURES IN CHART. PT RIGHT THIGH DRESSING CHANGES, PULLED OUT OLD PACKING AND PLACED NEW, CLEAR/YELLOW MODERATE AMOUNT OF CLEAR YELLOW/PINK DRAINAGE NOTED WOUND CLEANED, NEW PACKING PLACED, AND MEPILEX ON TOP, PICTURE IN CHART. PT APPEARS TO BE MORE SOLMULENT THIS AFTERNOON, PT AGREEABLE TO WEAR BIPAP WHILE RESTING THIS AFTERNOON. WILL CONTINUE TO MONITOR.
--- NOTE | 2019-05-27 17:34 | NUR ---
Reginald has required assistance with meals. She rarely makes effort to feed herself, but will eat if spoon fed. She has been drinking from a cup independently. Little conversation, and slow to respond. She responds with one or two words to questions, but doesn't initiate any conversation.
--- NOTE | 2019-05-27 18:17 | NUR ---
SHIFT SUMMARY PT ALERT AND ORIENTED TO SELF AND FOLLOW DIRECTIONS PT SPEAKING IN 1-4 WORK RESPONSES, DOES NOTE INITIAL CONVERSATION. PT UP TO CHAIR FOR MEAL, BY LIFT. FEEDER AND NEEDS ASSISTANCE WITH MEALS. PT REPORTS PAIN, MEDICATED X1 WITH TYLENOL. PT ON 2L O2 VIA NC FOR MAJORITY OF SHIFT. PT SOLMULENT THIS AFTERNOON, AGREED TO WEAR BIPAP, UP FOR DINNER. PT INCONTINENT OF BLADDER AND BOWL. DRESSING CHANGED AND WOUND VAC CHANGED OUT. PT EDEMATOUS T/O. PT HAD CT COMPLETED DURING SHIFT. WHEN ASKED IF PATIENT FEEL NAUSEA T/O SHIFT PT DENIES. VSS. NO OTHER ACUTE CHANGES NOTED DURING SHIFT. WILL CONTINUE TO MONITOR UNITL REPORT GIVEN TO ONCOMING RN.
--- NOTE | 2019-05-28 01:48 | NUR ---
Assumed care Assumed care of pt at approx 1905. Pt presents sitting/sleeping in chair. Pt easily awoken to light touch and verbal command. Pt responding to questions appropriately in a quiet, horse voice. Pt slow to respond. See shift assessment for detailed systems assessment Pt tranferred to bed via ceiling lift, repositioned q2 per orders, incontinent of urine and changed prn. currently with clean and dry attends in place. Pt with rash to the L groin, addressed with cream and powder. Wound vac draining clear fluid from sternal site. L leg wound packed, dry at this time. Pt sleeping with BIPAP this shift. VSS. No changes from initial shift assessment.
[2019-05-28 03:56] LABS: BASOPHILS ABSOLUTE AUTO 0.03 K/mm3 (0.00-0.23); BASOPHILS PERCENT AUTO 1 % (0-2); EOSINOPHILS PERCENT AUTO 3 % (0-6); Hematocrit 36.6 % (33.0-51.0); Hemoglobin 10.9 g/dL (11.5-16.0); IMMATURE GRAN ABSOLUTE AUTO 0.03 K/mm3 (0.00-0.10); IMMATURE GRAN PERCENT AUTO 1 % (0-1); LYMPHOCYTES PERCENT AUTO 14 % (21-46); MONOCYTES ABSOLUTE AUTO 0.71 K/mm3 (0.16-1.47); MONOCYTES PERCENT AUTO 11 % (4-13); Mean Corpuscular HGB 27.9 pg (26.0-34.0); Mean Corpuscular HGB Conc 29.8 g/dL (31.5-36.5); Mean Corpuscular Volume 94 fL (80-100); Mean Platelet Volume 11.7 fL (9.1-12.4); NEUTROPHILS ABSOLUTE AUTO 4.37 K/mm3 (1.96-9.15); NEUTROPHILS PERCENT AUTO 70 % (41-73); Platelet Count 159 K/mm3 (150-400); RDW Coefficient Variation 19.9 % (11.7-14.2); RDW Standard Deviation 68.5 fL (35.1-46.3); Red Blood Cell Count 3.91 M/mm3 (3.80-5.20); White Blood Cell Count 6.24 K/mm3 (4.00-11.30)
[2019-05-28 04:14] LABS: Alanine Aminotransfer (ALT/SGP 24 U/L (12-78); Albumin, Blood 2.2 g/dL (3.4-5.0); Albumin/Globulin Ratio 0.6 (0.8-1.8); Alk Phos 161 U/L (50-136); Anion Gap 2 mmol/L (6-16); Aspartate Aminotrans (AST/SGOT 35 U/L (12-37); Bilirubin, Total 0.5 mg/dL (0.1-1.0); Blood Urea Nitrogen 31 mg/dL (8-24); Bun/Creatinine Ratio 33.9 (12.0-20.0); CO2, Blood 42 mmol/L (21-32); Calcium, Blood 8.3 mg/dL (8.5-10.1); Chloride, Blood 98 mmol/L (98-108); Creatinine, Blood 0.91 mg/dL (0.40-1.00); Globulin, Blood 3.8 g/dL (2.2-4.0); Glomerular Filtration Rate >60 (60-); Glucose, Blood 148 mg/dL (70-99); Magnesium, Blood 1.9 mg/dL (1.6-2.4); Potassium, Blood 2.8 mmol/L (3.5-5.5); Sodium, Blood 142 mmol/L (136-145)
--- NOTE | 2019-05-28 04:31 | NUR ---
Shift Summary No acute changes this shift. Pt remains with VSS, sleeping this shift. Pt awoke for Vital assessment, remains alert and oriented and continues to converse. Pt responds appropriately to questions with simple, one word answers. Pt with attends in place, clean and dry at this time. Pt repositioned q2 per orders. Pt remains with coarse lungs sounds, clearing with cough. No further changes from initial shift assessment. Pt denies pain, breathing easy and unlabored, resting on BIPAP. Hand off given to DAX Melendez for further monitoring.
--- NOTE | 2019-05-28 06:06 | NUR ---
ENDING NOTE. REPORT TAKEN FROM LISANDRO VERDUZCO. PT ATTENDS WERE CHANGED AND LINEN CHANGED. PT ABLE TO WAKE AND TAKE AM MEDS. ABLE TO RESPOND IN SHOIRT SENTENCES. BACK ON BIPAP TO CONTINUE SLEEPING THIS AM. DENIES OTHER NEEDS. BED ALARM ON AND CALL LIGHT IN REACH.
--- NOTE | 2019-05-28 09:29 | NUR ---
PT UP IN CHAIR. ALERT AND ORIENTED TO SELF, SURROUNDING AND FOLLOW DIRECTIONS. PT STATES SHE DOSE NOT KNOW THE DATE OR THE PRESIDENT, THAT SHE IS AT [facility] AND DOES NOT KNOW WHY SHE IS HERE. PT ON 2L O2 VIA NC, BREATHING EVEN AND UNLABORED. PT DENIES PAIN AND NAUSEA. PT CONTINUES TO HAVE EDEMA TO BLE AND GENERALIZED. PT SPEAKING IN 4-5 WORD SENTENCES. TAKES PILLS WHOLE IN APPLE SAUCE, GOOD APPETEITE THIS AM. VSS. NO OTHER ACUTE CHANGES NOTED. DR NOYOLA AT BEDSIDE, NEW ORDERS TO TRANSFER TO [facility] WITH TELE. WILL CONTINUE TO MONITOR.
--- NOTE | 2019-05-28 10:55 | NUR ---
CHANGES DRESSING TO RIGHT INNER THIGH. REMOVED OLD PACKING, CLEANED, PLACED NEW PACKING AND PLACED MEPILEX. PT COTNINUES TO BE UP IN CHAIR ON 2L O2. WILL CONTINUE TO MONITOR.
--- NOTE | 2019-05-28 18:00 | NUR ---
SHIFT SUMMARY PT A&Ox1 TO SELF. PT PLEASANT AND COOPERATIVE WITH CARE. PT ANSWERING QUESTIONS, AND MAKING CONVERSATION WHEN PROMPTED. UP IN CHAIR FOR MAJORITY OF SHIFT, LIFT USED FOR TRANSFERS. PT ON 2L O2 VIA NC, SPO2 >92%, BIPAP AT NOC OR WHEN SLEEPING. ATTEMPED TO TITRATE O2 THIS AFTERNOON, PT DESATURATING TO 80'S. PT DENIES PAIN AND NAUSEA DURING SHIFT. PT APPETITE IMPROVING. POTASSIUM LOW THIS AM, PT RECEIVED 40 MEQ. PT STARTED ON ZINC FOR WOUND HEALING. URINE CULTURE COMPELTED, PT MEDICATED WITH IV MYCAMINE. PT RECEIVING IV LASIX, TRANSITIONING TO PO LASIX TOMORROW. WOUND VAC DRESSING C/DI AND RIGHT INNER THIGHT DRESSING CHANGED THIS AM AND INTACT. VSS. NO OTHER ACUTE CHANGES NOTED DURING SHIFT. REPORT GIVEN TO DAX GUSMAN ON MED UNIT, PT TRANSFERED TO [facility] AT APPROX 1745. DANETTE, DAUGHTER NOTIFIED OF TRANSFER.
--- NOTE | 2019-05-28 18:28 | NUR ---
SHIFT SUMMARY- PT TRANSFERED FROM PCU, TELEPHONE REPORT RECIEVED FROM CPR INSTRUCTORDAX RAE. PT ALERT AND CONFUSED, NOT A FALL RISK PER REPORT. PT IS A LIFT PT. PER REPORT TWO MONTHS AGO SHE WAS A 1PA WITH A FWW. PT WAS ADMITTED FOR HYPOXIC RESP FAILURE. PT ON O2 VIA NC, HAS A WOUND VAC, PT CAME FROM [facility] WITH A WOUND VAC ON THAT WAS SENT UP TO THIS ROOM WITH HER, HAVE NOT VISUALIZED IT AT THIS TIME. PT HAD A NEW WRIST BAND PLACED ON ARRIVAL WELL A NEW DNR BAND, VERIFIED WITH ASSISTANT PRODUCTION EDITOR LORI. PT IN BED WITH HER CALL LIGHT IN REACH, PT REFUSED DINNER THIS EVENING BUT IS TO BE UP IN THE CHAIR FOR ALL MEALS. PT HAS SWALLOW PRECAUTIONS, MEDS WHOLE IN APPLE SAUCE.
--- NOTE | 2019-05-29 04:41 | NUR ---
SHIFT SUMMARY RESPONDS TO VERBAL STIMULI; WITH SPONTANEOUS EYE OPENING. ANSWERS QUESTIONS APPROPRIATELY. COMPLIANT WITH BIPAP @ HS. VSS/AFEBRILE. UP AT 90 DEGREES FOR MED DELIVERY; MEDS WHOLE IN APPLESAUCE W/O ISSUE. REPOSITIONED TOLERATED. WOUND VAC PATENT AND DRAINING. NO ACUTE CHANGES OVERNIGHT. BED REMAINED IN LOWEST POSITION. WITH CALL LIGHT IN REACH. WCTM. REPORT TO ONCOMING RN.
[2019-05-29 04:52] LABS: BASOPHILS ABSOLUTE AUTO 0.03 K/mm3 (0.00-0.23); BASOPHILS PERCENT AUTO 0 % (0-2); EOSINOPHILS ABSOLUTE AUTO 0.17 K/mm3 (0.00-0.68); EOSINOPHILS PERCENT AUTO 2 % (0-6); Hematocrit 36.1 % (33.0-51.0); Hemoglobin 10.7 g/dL (11.5-16.0); IMMATURE GRAN ABSOLUTE AUTO 0.02 K/mm3 (0.00-0.10); IMMATURE GRAN PERCENT AUTO 0 % (0-1); LYMPHOCYTES ABSOLUTE AUTO 0.65 K/mm3 (0.84-5.20); LYMPHOCYTES PERCENT AUTO 9 % (21-46); MONOCYTES ABSOLUTE AUTO 0.51 K/mm3 (0.16-1.47); MONOCYTES PERCENT AUTO 7 % (4-13); Mean Corpuscular HGB 28.2 pg (26.0-34.0); Mean Corpuscular HGB Conc 29.6 g/dL (31.5-36.5); Mean Corpuscular Volume 95 fL (80-100); Mean Platelet Volume 11.4 fL (9.1-12.4); NEUTROPHILS PERCENT AUTO 81 % (41-73); Platelet Count 147 K/mm3 (150-400); RDW Coefficient Variation 19.9 % (11.7-14.2); RDW Standard Deviation 69.1 fL (35.1-46.3); White Blood Cell Count 7.38 K/mm3 (4.00-11.30)
[2019-05-29 05:25] LABS: Anion Gap 4 mmol/L (6-16); Blood Urea Nitrogen 27 mg/dL (8-24); Bun/Creatinine Ratio 36.7 (12.0-20.0); CO2, Blood 39 mmol/L (21-32); Calcium, Blood 8.2 mg/dL (8.5-10.1); Chloride, Blood 97 mmol/L (98-108); Creatinine, Blood 0.74 mg/dL (0.40-1.00); Glomerular Filtration Rate >60 (60-); Glucose, Blood 154 mg/dL (70-99); Potassium, Blood 3.1 mmol/L (3.5-5.5); Sodium, Blood 140 mmol/L (136-145)
[2019-05-29 09:21] LABS: PO2 Arterial 77.4 mmHg (80-100); pH Blood Arterial 7.44 (7.35-7.45)
--- NOTE | 2019-05-29 20:01 | NUR ---
SHIFT SUMMARY- PT HAS ORDERS FOR NIGHT OXIMETRY FOLLOWED BY [facility] IN THE MORNING. PLAN IS TO DC BACK TO [facility] WITH BIPAP. PT HAS HAD NO ACUT CHANGES T/O THE SHIFT. DENIES PAIN, REPOSITIONED AND CHANGED AT 1840. PASSED ON IN BEDSIDE REPORT.
[2019-05-30 04:42] LABS: PCO2 Arterial 56.2 mmHg (35-45); PO2 Arterial 84.6 mmHg (80-100); pH Blood Arterial 7.46 (7.35-7.45)
[2019-05-30 05:44] LABS: BASOPHILS ABSOLUTE AUTO 0.03 K/mm3 (0.00-0.23); BASOPHILS PERCENT AUTO 1 % (0-2); EOSINOPHILS ABSOLUTE AUTO 0.21 K/mm3 (0.00-0.68); EOSINOPHILS PERCENT AUTO 3 % (0-6); Hematocrit 40.1 % (33.0-51.0); Hemoglobin 12.2 g/dL (11.5-16.0); IMMATURE GRAN ABSOLUTE AUTO 0.03 K/mm3 (0.00-0.10); IMMATURE GRAN PERCENT AUTO 1 % (0-1); LYMPHOCYTES ABSOLUTE AUTO 0.95 K/mm3 (0.84-5.20); LYMPHOCYTES PERCENT AUTO 14 % (21-46); MONOCYTES ABSOLUTE AUTO 0.57 K/mm3 (0.16-1.47); MONOCYTES PERCENT AUTO 9 % (4-13); Mean Corpuscular HGB Conc 30.4 g/dL (31.5-36.5); Mean Corpuscular Volume 95 fL (80-100); NEUTROPHILS ABSOLUTE AUTO 4.84 K/mm3 (1.96-9.15); NEUTROPHILS PERCENT AUTO 73 % (41-73); RDW Coefficient Variation 20.1 % (11.7-14.2); RDW Standard Deviation 70.1 fL (35.1-46.3); Red Blood Cell Count 4.21 M/mm3 (3.80-5.20); White Blood Cell Count 6.63 K/mm3 (4.00-11.30)
[2019-05-30 05:48] LABS: Mean Platelet Volume 12.3 fL (9.1-12.4); Platelet Count 133 K/mm3 (150-400)
[2019-05-30 06:01] LABS: Alanine Aminotransfer (ALT/SGP 26 U/L (12-78); Albumin, Blood 2.1 g/dL (3.4-5.0); Albumin/Globulin Ratio 0.5 (0.8-1.8); Alk Phos 171 U/L (50-136); Anion Gap 3 mmol/L (6-16); Aspartate Aminotrans (AST/SGOT 34 U/L (12-37); Bilirubin, Total 0.6 mg/dL (0.1-1.0); Blood Urea Nitrogen 26 mg/dL (8-24); Bun/Creatinine Ratio 32.5 (12.0-20.0); CO2, Blood 40 mmol/L (21-32); Calcium, Blood 8.6 mg/dL (8.5-10.1); Chloride, Blood 97 mmol/L (98-108); Glomerular Filtration Rate >60 (60-); Glucose, Blood 130 mg/dL (70-99); Potassium, Blood 3.3 mmol/L (3.5-5.5); Sodium, Blood 140 mmol/L (136-145); Total Protein, Blood 6.1 g/dL (6.4-8.2)
--- NOTE | 2019-05-30 07:58 | NUR ---
END OF SHIFT: NOTHING NEW TO REPORT ON THIS PATIENT. ASSESSMENTS WERE COMPLETED, PATIENT WAS IN NO APPARENT DISTRESS.
--- NOTE | 2019-05-30 11:44 | NUR ---
Initial Visit: Palliative Care Consult for Advanced Care Planning. Pt is A&Ox1. Pt denies pain and dyspnea at this time. Pt reports feeling overall comfortable. Engaged in discussion regarding things to keep her occupied and she reports liking to watch cartoons and shows that are funny. Offered to turn volume up on television due to it being muted. Pt denies need. Pt appears to have difficulty with speaking as evidenced by little verbal response. Asked Pt if this RN can call and speak with her daughter and she shakes her head up and down indicating yes. Attempted to call daughter Donna and left voicemail with a request for call back to discuss any concerns. Spoke with bedside nurse Ernesto and discussed case. Palliative Care will remain available.
--- NOTE | 2019-05-30 19:06 | NUR ---
SHIFT SUMMARY NO ACUTE CHANGES. PATIENT DENIES PAIN EXCEPT WHEN LEGS ARE MOVED. PATIENT STILL VERY EDEMATOUS. NEW ORDERS FOR IV DIURETICS GIVEN. PATIENT WETTING HEAVILY TODAY. BARRIER CREAM APPLIED. REKHA BANDAGES APPLIED TO BLE'S. PATIENT VERY SLEEPY TODAY BUT WILL WAKE UP AND RESPOND WHEN SPOKEN TO. REPORT GIVEN TO LYNDA VERDUZCO.
--- NOTE | 2019-05-31 03:36 | NUR ---
CHANGED THE WOUND VAC DRESSING AND CANISTER. WOUND IS ON HER STERNAL AREA, ON THE EPIGASTRIC AREA. PT TOLERATED PROCEDURE WELL. PRIMARY RN AWARE OF DRESSING CHANGE.
[2019-05-31 05:17] LABS: BASOPHILS ABSOLUTE AUTO 0.05 K/mm3 (0.00-0.23); BASOPHILS PERCENT AUTO 1 % (0-2); EOSINOPHILS ABSOLUTE AUTO 0.29 K/mm3 (0.00-0.68); EOSINOPHILS PERCENT AUTO 5 % (0-6); Hematocrit 38.7 % (33.0-51.0); Hemoglobin 11.6 g/dL (11.5-16.0); IMMATURE GRAN ABSOLUTE AUTO 0.03 K/mm3 (0.00-0.10); IMMATURE GRAN PERCENT AUTO 1 % (0-1); LYMPHOCYTES ABSOLUTE AUTO 0.77 K/mm3 (0.84-5.20); LYMPHOCYTES PERCENT AUTO 14 % (21-46); MONOCYTES ABSOLUTE AUTO 0.67 K/mm3 (0.16-1.47); MONOCYTES PERCENT AUTO 12 % (4-13); Mean Corpuscular HGB 28.4 pg (26.0-34.0); Mean Corpuscular Volume 95 fL (80-100); Mean Platelet Volume 12.2 fL (9.1-12.4); NEUTROPHILS ABSOLUTE AUTO 3.73 K/mm3 (1.96-9.15); NEUTROPHILS PERCENT AUTO 67 % (41-73); Platelet Count 156 K/mm3 (150-400); RDW Coefficient Variation 19.9 % (11.7-14.2); RDW Standard Deviation 70.3 fL (35.1-46.3); Red Blood Cell Count 4.08 M/mm3 (3.80-5.20); White Blood Cell Count 5.54 K/mm3 (4.00-11.30)
[2019-05-31 05:40] LABS: Alanine Aminotransfer (ALT/SGP 22 U/L (12-78); Albumin, Blood 2.5 g/dL (3.4-5.0); Albumin/Globulin Ratio 0.7 (0.8-1.8); Alk Phos 156 U/L (50-136); Anion Gap 3 mmol/L (6-16); Aspartate Aminotrans (AST/SGOT 27 U/L (12-37); Bilirubin, Total 0.8 mg/dL (0.1-1.0); Blood Urea Nitrogen 23 mg/dL (8-24); CO2, Blood 39 mmol/L (21-32); Calcium, Blood 8.5 mg/dL (8.5-10.1); Chloride, Blood 97 mmol/L (98-108); Creatinine, Blood 0.79 mg/dL (0.40-1.00); Globulin, Blood 3.7 g/dL (2.2-4.0); Glomerular Filtration Rate >60 (60-); Glucose, Blood 146 mg/dL (70-99); Potassium, Blood 3.3 mmol/L (3.5-5.5); Sodium, Blood 139 mmol/L (136-145); Total Protein, Blood 6.2 g/dL (6.4-8.2)
--- NOTE | 2019-05-31 18:42 | NUR ---
SHIFT SUMMARY NO ACUTE CHANGES. PATIENT DENIES PAIN, NAUSEA, AND SHORTNESS OF BREATH. EDEMA IN PATIENT'S LOWER EXTREMITIES APPEARS LESS. REKHA WRAPS IN PLACE. PATIENT MORE ALERT AND TALKATIVE THIS SHIFT WHEN COMPARED WITH YESTERDAY. CALL LIGHT IN REACH, WILL CONTINUE TO MONITOR.
--- NOTE | 2019-05-31 21:50 | NUR ---
1849 ASSUMED CARE OF PATIENT 2149: SHIFT ASSESSMENT COMPLETED. B/L LEG ARAPS REMOVED AND REPLACED. EDMATOUS B/L THIGHS THROUGH ABDOMEN PITTING EDEMA 3+. IV SITE C/D/I PATIENT REPOSITIONED AND LINENS CHECKED. PATIENT C/O PAIN AND GAVE PAIN MED PER EMAR
[2019-06-01 05:04] LABS: BASOPHILS ABSOLUTE AUTO 0.06 K/mm3 (0.00-0.23); BASOPHILS PERCENT AUTO 1 % (0-2); EOSINOPHILS ABSOLUTE AUTO 0.57 K/mm3 (0.00-0.68); EOSINOPHILS PERCENT AUTO 10 % (0-6); Hematocrit 35.6 % (33.0-51.0); Hemoglobin 10.7 g/dL (11.5-16.0); IMMATURE GRAN ABSOLUTE AUTO 0.02 K/mm3 (0.00-0.10); IMMATURE GRAN PERCENT AUTO 0 % (0-1); LYMPHOCYTES ABSOLUTE AUTO 0.92 K/mm3 (0.84-5.20); LYMPHOCYTES PERCENT AUTO 16 % (21-46); MONOCYTES ABSOLUTE AUTO 0.53 K/mm3 (0.16-1.47); MONOCYTES PERCENT AUTO 9 % (4-13); Mean Corpuscular HGB 28.4 pg (26.0-34.0); Mean Corpuscular HGB Conc 30.1 g/dL (31.5-36.5); Mean Corpuscular Volume 94 fL (80-100); Mean Platelet Volume 11.8 fL (9.1-12.4); NEUTROPHILS PERCENT AUTO 63 % (41-73); Platelet Count 163 K/mm3 (150-400); RDW Coefficient Variation 19.6 % (11.7-14.2); RDW Standard Deviation 67.7 fL (35.1-46.3); Red Blood Cell Count 3.77 M/mm3 (3.80-5.20)
[2019-06-01 05:44] LABS: Anion Gap 5 mmol/L (6-16); Blood Urea Nitrogen 21 mg/dL (8-24); Bun/Creatinine Ratio 27.2 (12.0-20.0); CO2, Blood 35 mmol/L (21-32); Calcium, Blood 7.7 mg/dL (8.5-10.1); Chloride, Blood 98 mmol/L (98-108); Creatinine, Blood 0.77 mg/dL (0.40-1.00); Glomerular Filtration Rate >60 (60-); Glucose, Blood 132 mg/dL (70-99); Magnesium, Blood 1.7 mg/dL (1.6-2.4); Potassium, Blood 3.3 mmol/L (3.5-5.5); Sodium, Blood 138 mmol/L (136-145)
--- NOTE | 2019-06-01 17:21 | NUR ---
SHIFT SUMMARY PT DIURESSING WELL. VERY HEAVY VOIDS. PT CONTINUES TO BE VERY EDEMATOUS HOWEVER. PT LETHARGIC THIS SHIFT. AWAKENS TO VERBAL STIMULI & VERY SLOW TO RESPOND IF SHE RESPONDS. PT WOUND VAC DRESSING CHANGED. R LEG DRESSING CHANGED. NO OTHER CHANGES IN ASSESSMENT AT THIS TIME. VSS. WILL CONTINUE TO MONITOR UNTIL TURNOVER IS COMPLETE.
[2019-06-02 05:22] LABS: BASOPHILS ABSOLUTE AUTO 0.05 K/mm3 (0.00-0.23); BASOPHILS PERCENT AUTO 1 % (0-2); EOSINOPHILS ABSOLUTE AUTO 0.48 K/mm3 (0.00-0.68); EOSINOPHILS PERCENT AUTO 9 % (0-6); Hematocrit 40.4 % (33.0-51.0); IMMATURE GRAN ABSOLUTE AUTO 0.03 K/mm3 (0.00-0.10); IMMATURE GRAN PERCENT AUTO 1 % (0-1); LYMPHOCYTES ABSOLUTE AUTO 0.71 K/mm3 (0.84-5.20); LYMPHOCYTES PERCENT AUTO 13 % (21-46); MONOCYTES ABSOLUTE AUTO 0.54 K/mm3 (0.16-1.47); MONOCYTES PERCENT AUTO 10 % (4-13); Mean Corpuscular HGB 28.2 pg (26.0-34.0); Mean Corpuscular HGB Conc 29.7 g/dL (31.5-36.5); Mean Corpuscular Volume 95 fL (80-100); NEUTROPHILS PERCENT AUTO 66 % (41-73); Platelet Count 173 K/mm3 (150-400); RDW Coefficient Variation 19.6 % (11.7-14.2); RDW Standard Deviation 68.6 fL (35.1-46.3); Red Blood Cell Count 4.25 M/mm3 (3.80-5.20); White Blood Cell Count 5.31 K/mm3 (4.00-11.30)
[2019-06-02 06:34] LABS: Albumin, Blood 2.3 g/dL (3.4-5.0); Albumin/Globulin Ratio 0.6 (0.8-1.8); Bilirubin, Total 0.4 mg/dL (0.1-1.0); Bun/Creatinine Ratio 22.4 (12.0-20.0); Calcium, Blood 8.5 mg/dL (8.5-10.1); Creatinine, Blood 0.98 mg/dL (0.40-1.00); Magnesium, Blood 1.8 mg/dL (1.6-2.4); Potassium, Blood 3.3 mmol/L (3.5-5.5); Total Protein, Blood 6.3 g/dL (6.4-8.2)
--- NOTE | 2019-06-02 06:40 | NUR ---
SHIFT SUMMARY PT VERY LETHARGIC SOMNOLENT HARD TO STAY AWAKE. TOOK HER PILLS SLOWLY IN APPLESAUCE BUT VOMITED EVERYTHING UP AFTER SWALLOWING. HS LANTUS HELD PER KENNY CYLINDER MACHINE OPERATOR CHEM BG 102. NO OUTPUT FROM WOUND VAC ON CHEST. INCONT OF URINE. Q2HR TURNS. CALL LIGHT IN REACH.
[2019-06-02] MEDS ORDERED: ZINC220 PO (10:53)
[2019-06-02] MEDS ORDERED: LEVSOD100 PO (10:56)
[2019-06-02] MEDS ORDERED: LIOT5 PO (10:56)
--- NOTE | 2019-06-02 12:43 | NUR ---
REPORT CALLED TO ALEXA BONDS REPORT CALLED TO [facility]LE[facility] BONDS & GIVEN TO NURSE SHAH. FURTHER QUESTIONS DENIED. WILL CONTINUE TO MONITOR UNTIL PT IS PICKED UP.
--- NOTE | 2019-06-02 15:19 | NUR ---
PT DISCHARGED PT DISCHARGED AT 1505. PT IN STABLE CONDITION WITH VSS. REPORT CALLED TO ALEXA BONDS. PT TRANSPORTED BY [facility]. IV REMOVED & INTACT. NO CHANGES IN ASSESSMENT PRIOR TO DC.
== END 2019-06-02 15:05 | DRG 291 ==
LOC: DELPENDDIS → ER 22:15 → MEDS 05-24 01:29 → PCU 05-24 01:29 → ERHOLD 05-24 01:29 → PCU 05-24 13:32 → MEDS 05-28 17:46 → ENPENDDIS 05-29 11:02 → MEDS 05-30 22:31 → ENPENDDIS 06-02 09:49 → MEDS 06-02 15:05
PROVIDERS: Emergency Medicine; Internal Medicine; Internal Medicine Critical Care Medicine; ADMIT Hospitalist
PROC: 5A09357 Assistance with Respiratory Ventilation, Less than 24 Consecutive Hours, Continuous Positive Airway Pressure (ICD-10-PCS; principal; 2019-05-24)
DX: I11.0 Hypertensive heart disease with heart failure (principal); J96.22 Acute and chronic respiratory failure with hypercapnia; G92 Toxic encephalopathy; J96.21 Acute and chronic respiratory failure with hypoxia; Z68.41 Body mass index [BMI] 40.0-44.9, adult; R47.01 Aphasia; Z79.82 Long term (current) use of aspirin; I50.32 Chronic diastolic (congestive) heart failure; I25.10 Atherosclerotic heart disease of native coronary artery without angina pectoris; Z95.5 Presence of coronary angioplasty implant and graft; K21.9 Gastro-esophageal reflux disease without esophagitis; E78.5 Hyperlipidemia, unspecified; I48.2 Chronic atrial fibrillation; Z79.4 Long term (current) use of insulin; T81.49XD Infection following a procedure, other surgical site, subsequent encounter; E87.70 Fluid overload, unspecified; E11.9 Type 2 diabetes mellitus without complications; Z88.1 Allergy status to other antibiotic agents; J20.9 Acute bronchitis, unspecified; E87.6 Hypokalemia; E03.9 Hypothyroidism, unspecified; D64.9 Anemia, unspecified; Z99.81 Dependence on supplemental oxygen
CPT/HCPCS: 0099U; 36415; 36600; 70450; 71045; 71046; 80048; 80053; 80069; 81001; 82803; 82947; 83735; 83880; 84145; 84439; 84443; 84481; 84484; 85025; 87070; 87075; 87086; 87205; 87493; 92526; 92610; 93005; 93010; 94660; 94762; 96374; 97110; 97162; 97530; 99284-25; 99285-25; A9270; C9113; J0696; J1120; J1650; J1940; J2248; J2405; J3480; J7030; P9046

== ENCOUNTER 2019-06-05 14:12 | Emergency (ER) | payer OTHER ==
[~2019-06-05] VITALS: Ht 165.1 cm; Wt 86.2 kg
[~2019-06-05 14:12] MED LIST changes: +LEVSOD100 PO; +LIOT5 PO; +Pedi-Dri 100,0060 GM TOP; +ZINC220 PO
[2019-06-05] MEDS ORDERED: MORP20L PO (16:46)
[2019-06-05] MEDS ORDERED: Zofran8 MG PO (16:46)
== END 2019-06-05 21:06 | disposition home or self-care (01) ==
LOC: ER 14:12
DX: I48.92 Unspecified atrial flutter (principal); I50.84 End stage heart failure; E11.22 Type 2 diabetes mellitus with diabetic chronic kidney disease; N18.9 Chronic kidney disease, unspecified; I25.10 Atherosclerotic heart disease of native coronary artery without angina pectoris; D50.0 Iron deficiency anemia secondary to blood loss (chronic); I48.2 Chronic atrial fibrillation; Z95.1 Presence of aortocoronary bypass graft; Z88.2 Allergy status to sulfonamides; Z88.1 Allergy status to other antibiotic agents; Z88.5 Allergy status to narcotic agent; Z88.8 Allergy status to other drugs, medicaments and biological substances; Z91.048 Other nonmedicinal substance allergy status; Z79.899 Other long term (current) drug therapy; Z88.0 Allergy status to penicillin
CPT/HCPCS: 99283